=== PATIENT | female | born 1930 | race Caucasian/White ===

== ENCOUNTER 2016-08-04 14:52 | Emergency (ER) | payer MEDICARE, BC ==
[2016-08-04 14:59] VITALS: BP 166/71; PULSE 85; RESP 20; TEMP 96.9
[2016-08-04] MEDS ORDERED: DIPH,PERTUS(ACELL)TETVAC-LF 0.5 ML VIAL IM ONE (15:19)
--- NOTE | 2016-08-04 15:23 | ED ---
Wound/Laceration HPI - General Chief Complaint: Wound/Laceration Stated Complaint: left thumb lac Time Seen by Provider: 08/04/16 15:00 Source: patient Mode of arrival: ambulatory Limitations: no limitations - History of Present Illness Initial Comments: Patient is an 86-year-old right-handed female presenting to the emergency department with complaints of left thumb laceration. Onset of injury 22 hours ago. Patient states that she was cutting vegetables with the knife slipped. Patient immediately cleaned the wound with water and apply dressing. Patient states when she removed the dressing this morning, the wound flap came off and there was little bleeding. Patient currently denies pain. Patient states she took some Tylenol earlier in the day. Patient denies chills, nausea , vomiting, shortness of breath, chest pain, abdominal pain, numbness or tingling. Patient is unsure of last tetanus immunization. Place: home Patient Tetanus UTD: No Context: accidental, sharp object use Associated Symptoms: pain - Related Data Home Medications Medication Instructions Recorded Confirmed Aspirin 81 mg PO DAILY 10/23/13 10/30/15 Losartan Potassium [Cozaar] 100 mg PO DAILY 10/23/13 10/30/15 Previous Rx's Medication Instructions Recorded traMADol HCl [Ultram] 50 mg PO Q6H PRN #20 tab 10/30/15 valACYclovir HCL [Valtrex] 1,000 mg PO TID #21 tablet 10/30/15 Allergies Allergy/AdvReac Type Severity Reaction Status Date / Time morphine Allergy Nausea & Verified 08/04/16 14:59 Vomiting Penicillins Allergy Unknown Verified 08/04/16 14:59 Childhood Review of Systems ROS Statement: Those systems with pertinent positive or pertinent negative responses have been documented in the HPI. ROS Other: All systems not noted in ROS Statement are negative. Past Medical History Past Medical History: Hypertension, Osteoarthritis (OA) History of Any Multi-Drug Resistant Organisms: None Reported Past Surgical History: Appendectomy, Cholecystectomy, Heart Catheterization, Hysterectomy, Joint Replacement Additional Past Surgical History / Comment(s): bunion hammer toes neck Past Psychological History: No Psychological Hx Reported Smoking Status: Never smoker Past Alcohol Use History: None Reported Past Drug Use History: None Reported General Exam - General Exam Comments Initial Comments: GENERAL: Pt awake and alert, well-appearing, well-nourished, and in no acute distress. HEAD: Atraumatic, normocephalic. EYES: Pupils equal and round. Sclera anicteric, conjunctiva are normal. ENT: Moist mucous membranes. NECK:Normal range of motion. Supple without lymphadenopathy or JVD. No carotid bruits. Thyroid midline, small and firm without palpable masses. LUNGS: Breath sounds clear to auscultation bilaterally. No wheezes, rales, or rhonchi. HEART: Heart S1, S2, no S3 or S4. Regular rate and rhythm. No murmurs, rubs or gallops. NEUROLOGICAL: Pt oriented x 3. No focal deficits. Strength and sensation grossly intact. PSYCH: Normal mood, normal affect. SKIN: Warm, dry. Laceration to distal tip of left thumb without a nail injury, no active bleeding. Skin flap has attached itself. Left Forearm Wrist exam: Present: normal inspection, full ROM. Absent: tenderness, swelling Hand Wrist exam: Present: full ROM, tenderness (To distal left thumb), laceration (0.5 cm laceration to distal left thumb, no erythema or active drainage.) Neuro motor exam: Present: wrist extension intact, thumb opposition intact, thumb IP flexion intact, thumb adduction intact, fingers 2-5 abduction intact Neurosensory exam: Present: 2-point discrimination, radial nerve intact, ulnar nerve intact, median nerve intact Vascular: Present: normal capillary refill, radial pulse, brachial pulse, ulnar pulse. Absent: vascular compromise Course Vital Signs 08/04/16 14:57 Temperature 96.9 F L Pulse Rate 85 Respiratory 20 Rate Blood Pressure 166/71 O2 Sat by Pulse 96 Oximetry Medical Decision Making - Medical Decision Making 0.5 cm laceration to left distal thumb without nail damage. Wound flap has attached itself. Wound cleaned and bacitracin applied along with new dressing. Tetanus given. Patient instructed to follow-up with primary care physician as needed and return to the emergency department immediately with signs and symptoms of infection. Patient agrees with treatment plan. Return parameters discharge instructions reviewed. Disposition Clinical Impression: Laceration of left thumb with delay in treatment Disposition: HOME SELF-CARE Condition: Good Instructions: Laceration Without Closure (ED) Additional Instructions: Keep wound clean. May apply bacitracin twice daily to prevent infection. Please return to the emergency department with symptoms of infection such as redness or red streaks progressing up and extremity, increased pain, swelling, fever, or uncontrolled bleeding. Please follow-up with primary care physician as needed. Please return to the emergency department if symptoms do not improve or get worse. Referrals: Hetal Horton MD [Primary Care Provider] - 1-2 days Time of Disposition: 15:22
== END 2016-08-04 15:45 | disposition home or self-care (01) ==
LOC: EC 14:52
DX: S61.012A Laceration without foreign body of left thumb without damage to nail, initial encounter (principal); I10 Essential (primary) hypertension; M19.90 Unspecified osteoarthritis, unspecified site; Z79.82 Long term (current) use of aspirin; Z79.899 Other long term (current) drug therapy; Z88.0 Allergy status to penicillin; Z88.5 Allergy status to narcotic agent; Z23 Encounter for immunization; W26.0XXA Contact with knife, initial encounter; Y92.009 Unspecified place in unspecified non-institutional (private) residence as the place of occurrence of the external cause
CPT/HCPCS: 90471; 90715; 99282

== ENCOUNTER 2016-11-11 23:44 | Emergency (ER) | payer MEDICARE, BC ==
[2016-11-12] MEDS ORDERED: LIDOCAINE/EPINEPHR/TETRACAINE 5 ML BOTTLE TOPICAL ONE (00:35)
[2016-11-12] MEDS ORDERED: TOPICAL SKIN ADHESIVE 1 EACH AMP TOPICAL ONE (00:35)
--- NOTE | 2016-11-12 01:09 | CT ---
EXAM: CT Head Without Intravenous Contrast CLINICAL HISTORY: Pain TECHNIQUE: Axial computed tomography images of the head/brain without intravenous contrast. CTDI is 57.4 mGy and DLP is 892 mGy-cm. This CT exam was performed using one or more of the following dose reduction techniques: automated exposure control, adjustment of the mA and/or kV according to patient size, and/or use of iterative reconstruction technique. COMPARISON: No relevant prior studies available. FINDINGS: Brain: No evidence of acute infarct, hemorrhage, mass or edema. Chronic small vessel ischemic disease and senescent changes. Ventricles: Unremarkable. No ventriculomegaly. Bones/joints: Unremarkable. No acute fracture. Soft tissues: Unremarkable. Sinuses: Mild mucosal thickening of paranasal sinuses Mastoid air cells: Minimal opacification of the mastoid air cells. IMPRESSION: No acute findings.
--- NOTE | 2016-11-12 01:13 | ED ---
Head Injury HPI - General Chief complaint: Head Injury Stated complaint: Lac above rt eye Time Seen by Provider: 11/12/16 00:32 Source: patient, RN notes reviewed Mode of arrival: ambulatory Limitations: no limitations - History of Present Illness Initial comments: 86-year-old female presents emergency Department chief complaint head injury, facial laceration. She states that she was walking in the dark and caught the corner of a wall with her face. Patient states that she did not lose consciousness but she felt days. Patient states that her tetanus is up-to-date with tetanus last year. Patient denies any blurred vision, headache or dizziness. Denies any neck pain. She states she does take aspirin daily. She denies any other blood thinners and denies any Plavix. Patient denies nausea vomiting or any focal weakness. - Related Data Home Medications Medication Instructions Recorded Confirmed Aspirin 81 mg PO DAILY 10/23/13 10/30/15 Losartan Potassium [Cozaar] 100 mg PO DAILY 10/23/13 10/30/15 Previous Rx's Medication Instructions Recorded traMADol HCl [Ultram] 50 mg PO Q6H PRN #20 tab 10/30/15 valACYclovir HCL [Valtrex] 1,000 mg PO TID #21 tablet 10/30/15 Allergies/Adverse reactions: Allergies Allergy/AdvReac Type Severity Reaction Status Date / Time morphine Allergy Nausea & Verified 11/11/16 23:51 Vomiting Penicillins Allergy Unknown Verified 11/11/16 23:51 Childhood Review of Systems ROS Statement: Those systems with pertinent positive or pertinent negative responses have been documented in the HPI. ROS Other: All systems not noted in ROS Statement are negative. Past Medical History Past Medical History: Hypertension, Osteoarthritis (OA) History of Any Multi-Drug Resistant Organisms: None Reported Past Surgical History: Appendectomy, Cholecystectomy, Heart Catheterization, Hysterectomy, Joint Replacement Additional Past Surgical History / Comment(s): bunion hammer toes neck Past Psychological History: No Psychological Hx Reported Smoking Status: Never smoker Past Alcohol Use History: None Reported Past Drug Use History: None Reported General Exam Limitations: no limitations General appearance: alert, in no apparent distress Head exam: Present: atraumatic, normocephalic. Absent: normal inspection (0.5 cm vertical laceration above the right eyebrow) Eye exam: Present: normal appearance, PERRL, EOMI. Absent: scleral icterus, conjunctival injection, periorbital swelling ENT exam: Present: normal exam, normal oropharynx, mucous membranes moist, TM's normal bilaterally, normal external ear exam Neck exam: Present: normal inspection, full ROM. Absent: tenderness, meningismus, lymphadenopathy Respiratory exam: Present: normal lung sounds bilaterally. Absent: respiratory distress, wheezes, rales, rhonchi, stridor Cardiovascular Exam: Present: regular rate, normal rhythm, normal heart sounds. Absent: systolic murmur, diastolic murmur, rubs, gallop, clicks Neurological exam: Present: alert, oriented X3, CN II-XII intact, reflexes normal. Absent: motor sensory deficit Skin exam: Present: warm, dry, intact, normal color. Absent: rash Course Vital Signs 11/11/16 23:47 Temperature 98.6 F Pulse Rate 80 Respiratory 16 Rate Blood Pressure 161/70 O2 Sat by Pulse 96 Oximetry Procedures - Procedures Initial comment: facial laceration 0.5 cm was cleaned with saline and Dermabond was used to close the wound. Medical Decision Making - Medical Decision Making 86-year-old female presented emergency from for facial injury, head injury. Patient's laceration was closed using Dermabond. Patient's CT does not show any acute abnormality. Return parameters were discussed Disposition Clinical Impression: Facial laceration, Head injury Disposition: HOME SELF-CARE Condition: Stable Instructions: Skin Adhesive Care (ED), Head Injury (ED) Additional Instructions: Please return to the Emergency Department if symptoms worsen or any other concerns. Referrals: Hetal Horton MD [Primary Care Provider] - 1-2 days Time of Disposition: 01:13
[2016-11-12 01:29] VITALS: BP 165/75; PULSE 66; RESP 18; TEMP 97.5
== END 2016-11-12 01:29 | disposition home or self-care (01) ==
LOC: EC 23:44
DX: S01.81XA Laceration without foreign body of other part of head, initial encounter (principal); I10 Essential (primary) hypertension; M19.90 Unspecified osteoarthritis, unspecified site; Z79.82 Long term (current) use of aspirin; Z79.899 Other long term (current) drug therapy; Z88.0 Allergy status to penicillin; Z88.5 Allergy status to narcotic agent; W22.8XXA Striking against or struck by other objects, initial encounter; Y93.01 Activity, walking, marching and hiking
CPT/HCPCS: 12001; 70450; 99283

== ENCOUNTER → 2017-01-14 | Outpatient (CLI) | payer MEDICARE, BC ==
--- NOTE | 2017-01-14 09:59 | US ---
EXAMINATION TYPE: US thyroid st tissue head/neck DATE OF EXAM: 01/14/2017 COMPARISON: NONE CLINICAL HISTORY: E05.90 thyrotoxicosis. GLAND SIZE: Right Lobe: 4.3 x 1.4 x 1.0 cm Overall Parenchyma: homogenous Left Lobe: 3.2 x 0.6 x 0.7 cm Overall Parenchyma: homogeneous Isthmus Thickness: 0.2 cm NODULES RIGHT: # of nodules measured on right: 1 1. 0.5 X 0.3 x 0.4 cm anechoic cystic nodule at the lower pole with well-defined margins. This nod ule is wider than tall and shows no intranodular vascularity. LEFT: # of nodules measured on left: 0 ISTHMUS: # of nodules measured in the isthmus: 0 Bilateral neck scanned, no evidence of lymphadenopathy. IMPRESSION: 1. Nonenlarged, heterogenous thyroid gland without hyperemia to correspond to the patient's history o f thyrotoxicosis. 2. Single subcentimeter cystic right thyroid lobe lesion that may represent a benign colloid cyst.
--- NOTE | 2017-01-15 10:43 | NM ---
EXAMINATION TYPE: NM thyroid image w uptake DATE OF EXAM: 01/15/2017 COMPARISON: Ultrasound 01/14/2017 HISTORY: 86-year-old female with thyrotoxicosis. TECHNIQUE: After the intravenous administration of 11.0 mCi Tc 99m Sodium Pertechnetate, thyroid imag ing is performed 10 minutes post injection. Thyroid iodine uptake is calculated after the oral admini stration of 11.1 uCi I-131 capsule. FINDINGS: There is normal distribution of activity throughout the gland. The 4 hour iodine uptake is calculated at 6.7% (normal range 8-14%). The 24-hour iodine uptake is perlita culated at 20.4% (normal range 15-35%). IMPRESSION: 1. Measurements show normal to low iodine uptake. 2. Clinically correlate given the patient's thyrotoxicosis; some differential considerations include subacute and silent thyroiditis.
== END | disposition home or self-care (01) ==
LOC: RADUSMAIN 09:14
PROVIDERS: ATTEND Internal Medicine
DX: E05.10 Thyrotoxicosis with toxic single thyroid nodule without thyrotoxic crisis or storm (principal)
CPT/HCPCS: 76536; 78014; A9528; A9512

== ENCOUNTER 2017-09-24 14:23 | Emergency (ER) | payer MEDICARE, BC ==
[2017-09-24 14:30] VITALS: BP 206/93; PULSE 80; RESP 20; TEMP 98.1
--- NOTE | 2017-09-24 14:56 | XR ---
EXAMINATION TYPE: XR ankle complete LT, XR foot complete LT DATE OF EXAM: 09/24/2017 CLINICAL HISTORY: Fall injury one week ago with pain and swelling TECHNIQUE: Frontal, lateral and oblique images of the left ankle and foot are obtained. COMPARISON: None. FINDINGS: Osseous structures are demineralized. There is no acute fracture/dislocation evident in th e left ankle. The ankle mortise appears within normal limits. The overlying soft tissue appears unr emarkable. There is no acute fracture or dislocation evident in the left foot. There is evidence of bunion corre ction surgery distal first metatarsal with slight hallux valgus positioning and mild to moderate join t space loss and spurring first metatarsophalangeal joint redemonstrated. There is age indeterminate comminuted mildly displaced fracture distal diaphysis fifth metatarsal. Marked flexion in toes makes evaluation at this level suboptimal. Moderate size inferior calcaneal spur is present. Overlying soft tissue is unremarkable. IMPRESSION: There is age-indeterminate mildly displaced comminuted fracture distal diaphysis fifth m etatarsal, correlate with point level tenderness at this level advised.
--- NOTE | 2017-09-24 15:03 | ED ---
Lower Extremity Injury HPI - General Chief Complaint: Extremity Injury, Lower Stated Complaint: fall/foot swelling Time Seen by Provider: 09/24/17 14:50 Source: patient Mode of arrival: wheelchair Limitations: no limitations - History of Present Illness Initial Comments: This 87-year-old white female presents with a complaint of left foot injury. She states that she tripped while at [employer] one week ago. She apparently twisted her foot and/or ankle. She complains of some swelling to the area. She only has some mild pain. She has been able to ambulate without any difficulty. She denies any other injuries. She states that the swelling has been persistent so she came in for further evaluation. Other complaints or modifying factors. - Related Data Home Medications Medication Instructions Recorded Confirmed Aspirin 81 mg PO DAILY 10/23/13 10/30/15 Losartan Potassium [Cozaar] 100 mg PO DAILY 10/23/13 10/30/15 Previous Rx's Medication Instructions Recorded traMADol HCl [Ultram] 50 mg PO Q6H PRN #20 tab 10/30/15 valACYclovir HCL [Valtrex] 1,000 mg PO TID #21 tablet 10/30/15 Allergies Allergy/AdvReac Type Severity Reaction Status Date / Time morphine Allergy Nausea & Verified 09/24/17 14:59 Vomiting Penicillins Allergy Unknown Verified 09/24/17 14:59 Childhood Sulfa (Sulfonamide Allergy Unknown Verified 09/24/17 14:59 Antibiotics) Childhood Review of Systems ROS Statement: Those systems with pertinent positive or pertinent negative responses have been documented in the HPI. ROS Other: All systems not noted in ROS Statement are negative. Past Medical History Past Medical History: Coronary Artery Disease (CAD), Hypertension, Osteoarthritis (OA) History of Any Multi-Drug Resistant Organisms: None Reported Past Surgical History: Appendectomy, Cholecystectomy, Heart Catheterization, Hysterectomy, Joint Replacement Additional Past Surgical History / Comment(s): bunion hammer toes neck Past Psychological History: No Psychological Hx Reported Smoking Status: Never smoker Past Alcohol Use History: None Reported Past Drug Use History: None Reported General Exam Limitations: no limitations General appearance: alert, in no apparent distress Extremities exam: Present: tenderness (There is tenderness noted to the left fifth metatarsal. There is no significant tenderness to the ankle joint. There is some mild swelling around the left fifth metatarsal distally. There is no gross deformity over currently identified. There is excellent range of motion of the foot and ankle. Good pedal pulses are noted.) Neurological exam: Present: alert, oriented X3 Skin exam: Present: intact. Absent: rash Course Vital Signs 09/24/17 14:27 Temperature 98.1 F Pulse Rate 80 Respiratory 20 Rate Blood Pressure 206/93 O2 Sat by Pulse 98 Oximetry Medical Decision Making - Medical Decision Making The patient was seen and examined. The x-rays of the foot and ankle are reviewed. It is noted that she has a distal left fifth metatarsal fracture which is angulated and comminuted. No other fractures or acute osseous abnormalities are noted of the foot and ankle. She is placed in a Lucio shoe. She is counseled regarding her diagnosis in detail and leaves in no significant distress. She is requesting follow-up with Dr. Jerry Mcallister as her has seen him in the past. It is felt that she would benefit from further orthopedic evaluation for definitive treatment of this week long injury. Disposition Clinical Impression: Fracture of metatarsal of left foot, closed Disposition: HOME SELF-CARE Condition: Good Instructions: Foot Fracture in Adults (ED) Is patient prescribed a controlled substance at d/c from ED?: No Referrals: Jerry Duran DO [Doctor of Osteopathic Medicine] - As Soon As Possible Hetal Horton MD [Primary Care Provider] - 09/27/17 Time of Disposition: 15:03
== END 2017-09-24 15:28 | disposition home or self-care (01) ==
LOC: EC 14:23
DX: S92.352A Displaced fracture of fifth metatarsal bone, left foot, initial encounter for closed fracture (principal); I25.10 Atherosclerotic heart disease of native coronary artery without angina pectoris; I10 Essential (primary) hypertension; Z95.5 Presence of coronary angioplasty implant and graft; Z88.0 Allergy status to penicillin; Z88.2 Allergy status to sulfonamides; Z88.5 Allergy status to narcotic agent; Z79.82 Long term (current) use of aspirin; Z79.899 Other long term (current) drug therapy; W01.0XXA Fall on same level from slipping, tripping and stumbling without subsequent striking against object, initial encounter; Y92.512 Supermarket, store or market as the place of occurrence of the external cause
CPT/HCPCS: 99283

== ENCOUNTER → 2017-09-25 | Outpatient (CLI) | payer MEDICARE, BC | END | disposition home or self-care (01) | LOC: LABWHC1 12:17 | PROVIDERS: ATTEND Orthopaedic Surgery | DX: E55.9 Vitamin D deficiency, unspecified (principal) | CPT/HCPCS: 36415; 82306 ==

== ENCOUNTER → 2018-02-04 | Outpatient (CLI) | payer MEDICARE, BC ==
--- NOTE | 2018-02-04 13:47 | US ---
EXAMINATION TYPE: US venous doppler duplex LE BI DATE OF EXAM: 02/04/2018 1:18 PM COMPARISON: NONE CLINICAL HISTORY: M79.672 Pain in left foot, M79.661 Pain in rt leg. SIDE PERFORMED: Bilateral TECHNIQUE: The lower extremity deep venous system is examined utilizing real time linear array sonog akosua with graded compression, doppler sonography and color-flow sonography. VESSELS IMAGED: Common Femoral Vein Deep Femoral Vein Greater Saphenous Vein * Femoral Vein Popliteal Vein Small Saphenous Vein * Proximal Calf Veins (* superficial vessels) Right Leg: Negative for DVT. Thickened wall valves noted on image 20 at mid Popliteal Vein. Left Leg: Negative for DVT Negative for SVT bilateral Greater Saphenous Vein as assessed per order. IMPRESSION: 1. Ultrasound bilateral lower extremity negative for deep venous thrombosis. 2. Note is made of thickened valve is within the right lower extremity venous system. 3. Superficial venous thrombosis is not evident within the bilateral greater saphenous veins.
== END | disposition home or self-care (01) ==
LOC: RADUSWWP 12:40
PROVIDERS: ATTEND Orthopaedic Surgery
DX: I87.8 Other specified disorders of veins (principal); S92.355D Nondisplaced fracture of fifth metatarsal bone, left foot, subsequent encounter for fracture with routine healing; M79.661 Pain in right lower leg; M79.662 Pain in left lower leg; I80.9 Phlebitis and thrombophlebitis of unspecified site
CPT/HCPCS: 93970

== ENCOUNTER → 2018-07-08 | Outpatient (CLI) | payer MEDICARE, BC ==
[2018-07-08 12:34] LABS: HCT 39.9 % (34.0-46.0); HGB 12.4 gm/dL (11.4-16.0); MCHC 31.1 g/dL (31.0-37.0); MCV 96.5 fL (80.0-100.0); Mean Platelet Volume 8.2; Platelet Count 106 k/uL (150-450); RBC 4.13 m/uL (3.80-5.40); RDW 13.5 % (11.5-15.5)
== END | disposition home or self-care (01) ==
LOC: LABPAT 10:58
PROVIDERS: ATTEND Internal Medicine Interventional Cardiology
DX: Z01.812 Encounter for preprocedural laboratory examination (principal); I10 Essential (primary) hypertension; E78.2 Mixed hyperlipidemia; R94.39 Abnormal result of other cardiovascular function study
CPT/HCPCS: 36415; 80051; 82565; 84520; 85027

== ENCOUNTER → 2018-07-22 | Day surgery (SDC) | payer MEDICARE, BC ==
[2018-07-18 10:41] VITALS: BMI 31.1
[~2018-07-22] MED LIST: ALPRAZolam 0.25 MG TAB PO PRN; ALPRAZolam 0.5 MG TAB PO PRN; ASPIRIN 325 MG TAB PO ONE; ASPIRIN 81 MG PO SCH; ATORVASTATIN 80 MG TAB PO ONE; CHOLECALCIFEROL 1,000 UNIT TAB PO SCH; CYANOCOBALAMIN 2500 MCG PO SCH; HEPARIN SODIUM 1,000 UN/ML (10ML VL) IV ONE; HEPARIN SODIUM 1,000 UN/ML (10ML VL) ONE; IOPAMIDOL-370 125ML BTL INJ ONE; LIDOCAINE 2% INJ 20 MG/ML SQ ONE; MIDAZOLAM 2 MG/2 ML VIAL IVP ONE; MULTIVITAMINS, THERA 1 EACH TAB PO SCH; NITROGLYCERIN SL TABS 0.4 MG TAB SUBLINGUAL PRN; NON-FORMULARY DRUG (Biotin [Biotin] 10,000 MCG) PO SCH; NON-FORMULARY DRUG (Krill Oil [Krill Oil] 500 MG) PO SCH; NON-FORMULARY DRUG (Losartan Potassium [Cozaar] 100 MG) PO SCH; NON-FORMULARY DRUG (Magnesium Oxide 250 MG) PO SCH; NON-FORMULARY DRUG (Potassium [Potassium] 99 MG) PO SCH; RX INFO: IV CONTRAST WAS GIVEN 1 EACH MISC MISCELLANE PRN; SODIUM CHLORIDE 0.9% 1,000 ML IV SCH; SODIUM CHLORIDE 0.9% 1,000 ML in EMPTY BAG 1 BAG IV ONE; VERAPAMIL 2.5 MG/ML 2 ML AMP ONE; VERAPAMIL SYRINGE (5 MG/10 ML) IVP ONE; fentaNYL (PF) 50 MCG/ML 2 ML AMP IVP ONE; fentaNYL (PF) 50 MCG/ML 2 ML AMP ONE; hydrALAZINE HCL 25 MG TAB PO SCH
[2018-07-22 07:00] VITALS: RESP 18; TEMP 98
--- NOTE | 2018-07-22 08:15 | CC ---
CARDIAC CATHETERIZATION REPORT Mrs Salas is an 88-year-old female with known history of hypertension, who presented with symptoms of progressive fatigue and dyspnea, underwent a myocardial perfusion imaging that revealed a moderately-sized anterior wall inducible ischemia. In view of that, recommendation made regarding cardiac catheterization. The procedures, risks and complications were discussed with the patient who is in full understanding and agreement. PROCEDURE: Patient was brought to the garage laborer in a fasting semi-sedated state after receiving fentanyl and Benadryl and achieving moderate conscious sedated state. Using Xylocaine anesthesia and Seldinger technique, a 6-Cypriot sheath was introduced in the right radial artery. Selective right and left coronary angiography were performed using 5- Cypriot 3.5 bend right and left Marichuy catheter, multiple views of the coronary artery including hemiaxial views were obtained. Following that, a 5-Cypriot tight pigtail catheter was introduced in the left ventricle and pressures were calculated. Following that, the catheter and sheath were removed. Hemostasis was obtained with deployment of a TR band. There was no immediate complication. Patient is returned to her room in stable condition. Of note, patient received intra-arterial verapamil as well as 4000 units of intravenous heparin. FINDINGS: LEFT MAIN: This is a short size vessel, bifurcating into left circumflex, left anterior descending artery. Left main coronary artery has no evidence of high-grade stenosis. LEFT ANTERIOR DESCENDING ARTERY: This is a large-sized vessel, reaching toward the apex with a wraparound apex segment that tapers down to the distal third, giving rise to 3 small diagonal branch. The left anterior descending artery as well as branches have no evidence of high-grade stenosis. LEFT CIRCUMFLEX: This is a nondominant vessel, giving rise to 4 obtuse marginal branches, the left circumflex as well as branches have no evidence of significant obstructive coronary artery disease. RIGHT CORONARY ARTERY: This is a dominant vessel bifurcating distally into PDA and posterolateral segment and branches. The right coronary artery as well as branches have no evidence of significant obstructive coronary artery disease. LEFT VENTRICULOGRAM: Left ventriculogram was not performed. HEMODYNAMICS: There was no gradient across the aortic valve. The left ventricular end-diastolic pressure was 14 to 18 mmHg. CONCLUSION: Normal coronary arteries. RECOMMENDATION: In view of finding anatomy, recommend continue medical therapy with aggressive coronary risk modifications being initiated. Those findings and recommendation were discussed with the patient her family and they are in full understanding and agreement. Duration of the procedure is 16 minutes. MMODL / IJN: [id number] /
--- NOTE | 2018-07-22 08:22 | LTR ---
DATE OF SERVICE: 07/22/2018 RE: MaritzaSandyen Dear Dr. Horton; I had the pleasure to perform cardiac catheterization on Mrs. Salas at [facility] on July 22, 2018 and a full copy of the procedure note will be forwarded to you. In brief, she was found to have no evidence of obstructive coronary artery disease and based on those findings, I recommend continue medical therapy with aggressive risk modifications being initiated and thank you again for allowing me to participate in this patient's care. Please feel free to call for any questions. Sincerely yours, Sukhi Hargrove MD MMMIGUELL / ROSALIEN: [id number] /
[2018-07-22 12:01] VITALS: BP 106/54
[2018-07-22 13:13] VITALS: PULSE 75
== END | disposition home or self-care (01) ==
LOC: CATHCVL 05:56
PROVIDERS: ATTEND Internal Medicine Interventional Cardiology
DX: R06.09 Other forms of dyspnea (principal); R53.83 Other fatigue; R94.39 Abnormal result of other cardiovascular function study; I10 Essential (primary) hypertension; Z82.49 Family history of ischemic heart disease and other diseases of the circulatory system; I44.7 Left bundle-branch block, unspecified; Z79.82 Long term (current) use of aspirin; Z79.899 Other long term (current) drug therapy; Z88.5 Allergy status to narcotic agent; Z88.0 Allergy status to penicillin; Z88.2 Allergy status to sulfonamides
CPT/HCPCS: 93458; C1894; C1769; J2001; J2250; J3010; J1644; Q9967

== ENCOUNTER → 2018-09-22 | Outpatient (CLI) | payer MEDICARE, BC ==
[2018-09-22 10:31] LABS: Basophils % (A) 1 %; Eosinophils # (A) 0.1 k/uL (0-0.7); Eosinophils % (A) 3 %; HCT 36.2 % (34.0-46.0); HGB 11.8 gm/dL (11.4-16.0); Lymphocytes % (A) 25 %; MCH 30.9 pg (25.0-35.0); MCHC 32.5 g/dL (31.0-37.0); MCV 95.2 fL (80.0-100.0); Mean Platelet Volume 7.9; Monocytes # (A) 0.4 k/uL (0-1.0); Monocytes % (A) 9 %; Neutrophils # (A) 2.4 k/uL (1.3-7.7); Neutrophils % (A) 60 %; Platelet Count 196 k/uL (150-450); RBC 3.81 m/uL (3.80-5.40); RDW 13.5 % (11.5-15.5)
== END | disposition home or self-care (01) ==
LOC: LABWHC1 09:10
PROVIDERS: ATTEND Internal Medicine
DX: E78.2 Mixed hyperlipidemia (principal)
CPT/HCPCS: 36415; 85025

== ENCOUNTER → 2019-03-31 | Outpatient (CLI) | payer MEDICARE, BC | END | disposition home or self-care (01) | LOC: LABWHC1 08:58 | PROVIDERS: ATTEND Otolaryngology | DX: J38.01 Paralysis of vocal cords and larynx, unilateral (principal) | CPT/HCPCS: 36415; 82607; 84443; 86780 ==

== ENCOUNTER → 2019-04-13 | Outpatient (CLI) | payer MEDICARE, BC ==
--- NOTE | 2019-04-13 09:38 | CT ---
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 Lack of contrast limits evaluation. AIRWAY: The supraglottic, glottic, and subglottic portions of the airway appear patent and free of mass. SALIVARY GLANDS: The submandibular and parotid glands are free of mass or inflammatory process. THYROID GLAND: No nodules or masses seen. LYMPH NODES: No adenopathy seen greater than 1cm. OTHER: Vascular structures are patent. Generative changes throughout the cervical spine. Postoperati ve changes of cervical fusion. No abscess seen. IMPRESSION: No distinct abnormality to account for the patient's symptoms. EXAMINATION TYPE: CT neck chest without con DATE OF EXAM: 04/13/2019 COMPARISON: 11/09/2010 HISTORY: J38.[address] of the chest was performed with lung and mediastinal window settings submitted. The la ck of contrast limits evaluation of the vascular, mediastinal and parenchymal structures including th e upper abdomen. LUNGS: Near scarring noted left upper lobe. Calcification unchanged from prior study. Right lower lob e calcification. The lungs are clear and free of infiltrate. No atelectasis. No pulmonary nodule or mass is detected. No pleural effusion. No CT evidence of interstitial lung disease. MEDIASTINUM/BANG: Calcified hilar mediastinal lymph nodes. Thoracic aorta is of normal caliber with limited evaluation given lack of contrast. The heart is not enlarged. No evidence for mediastinal m ass. No lymph nodes greater than 1cm. UPPER ABDOMEN: No significant abnormality is seen. OTHER: No significant other abnormality. IMPRESSION: 1. Stable parenchymal scarring and remote granulomatous change.
== END | disposition home or self-care (01) ==
LOC: RADCTMAIN 07:51
PROVIDERS: ATTEND Otolaryngology
DX: J98.4 Other disorders of lung (principal); Z88.0 Allergy status to penicillin; Z88.5 Allergy status to narcotic agent; Z88.2 Allergy status to sulfonamides
CPT/HCPCS: 36415; 70490; 71250; 82565; 82607; 84443; 84520; 86780

== ENCOUNTER → 2019-04-20 | Outpatient (CLI) | payer MEDICARE, BC | END | disposition home or self-care (01) | LOC: LABWHC1 09:44 | PROVIDERS: ATTEND Otolaryngology | DX: R53.83 Other fatigue (principal) | CPT/HCPCS: 36415; 84439; 86376 ==

== ENCOUNTER → 2019-05-21 | Outpatient (CLI) | payer MEDICARE, BC ==
--- NOTE | 2019-05-21 14:08 | XR ---
EXAMINATION TYPE: XR lumbar spine 2 or 3V DATE OF EXAM: 05/21/2019 CLINICAL HISTORY: Lumbar spondylosis border. Back pain into left leg history of numerous falls per pa tient TECHNIQUE: Frontal and lateral images of the lumbar spine are obtained. COMPARISON: Prior lumbar spine x-ray August 13, 2013 FINDINGS: There are 5 lumbar type vertebral bodies redemonstrated giving a function of somewhat hypo plastic left T12 rib. There is redemonstration of dextroconvex scoliotic curvature centered L5 level. Osseous structures are demineralized which is noted to lower radiographic sensitivity. There is now moderate compression fracture L1 level presumed chronic as there is diffuse sclerosis present there a ppears to be grade 1 retrolisthesis of L1 on L2 and L2 on L3. There is mild to moderate disc space na rrowing with mild anterior spurring L2-L3 level. There is mild disc space narrowing L5-S1 level. Face t arthropathy lower lumbar spine. Overlying Vascular calcification. IMPRESSION: As above.
== END | disposition home or self-care (01) ==
LOC: RADXRMAIN 13:32
PROVIDERS: ATTEND Internal Medicine
DX: M48.56XA Collapsed vertebra, not elsewhere classified, lumbar region, initial encounter for fracture (principal); M99.73 Connective tissue and disc stenosis of intervertebral foramina of lumbar region; M99.74 Connective tissue and disc stenosis of intervertebral foramina of sacral region; M46.96 Unspecified inflammatory spondylopathy, lumbar region; M41.86 Other forms of scoliosis, lumbar region
CPT/HCPCS: 72100

== ENCOUNTER → 2019-05-29 | Outpatient (CLI) | payer MEDICARE, BC ==
--- NOTE | 2019-05-29 11:53 | US ---
EXAMINATION TYPE: US abdomen complete DATE OF EXAM: 05/29/2019 COMPARISON: CT 2010. CLINICAL HISTORY: D69.6 Thrombocytopenia, unspecified. Abnormal labs EXAM MEASUREMENTS: Liver Length: 14.1 cm CBD: 1.1 cm Spleen: 8.3 cm Right Kidney: 10.5 x 4.7 x 5.5 cm Left Kidney: 9.1 x 3.8 x 3.5 cm Pancreas: Difficult to visualize due to overlying bowel gas Liver: Limited visualization/ appeared wnl Gallbladder: Surgically absent Evidence for sonographic Hernandez's sign: No CBD: ?wnl for pt's age and post andrés Spleen: A few granulomas, otherwise appeared wnl Right Kidney: Multiple cysts, largest cyst mid= 3.1 x 3.2 x 4.7 cm, lower pole gassed out Left Kidney: Cyst mid= 3.1 x 2.0 x 2.6 cm/ difficult to visualize due to overlying bowel gas Upper IVC: wnl Abd Aorta: wnl The visualized liver is slightly heterogeneous. The intrahepatic portion of the IVC and visualized a bdominal aorta are within normal limits. Gallbladder noted surgically absent. Common bile duct is mi nimally dilated without intrahepatic ductal dilatation. The visualized portions of the pancreas are slightly heterogeneous. Significant portions obscured by overlying bowel gas on images dated per primo hnologist. The spleen is unremarkable. Kidneys are symmetric and free of hydronephrosis. A few simpl e appearing thin-walled cysts scattered throughout both kidneys are present. Increased cortical echog enicity bilaterally is seen. Findings are consistent with product of chronic medical renal disease. IMPRESSION: Spleen is nonenlarged. No acute findings are evident.
== END | disposition home or self-care (01) ==
LOC: RADUSWWP 10:32
PROVIDERS: ATTEND Internal Medicine
DX: D69.6 Thrombocytopenia, unspecified (principal)
CPT/HCPCS: 76700

== ENCOUNTER → 2019-05-30 | Outpatient (CLI) | payer MEDICARE, BC ==
--- NOTE | 2019-05-30 17:10 | MR ---
EXAMINATION TYPE: MR lumbar spine wo con DATE OF EXAM: 05/30/2019 COMPARISON: None HISTORY: Other spondylosis, lumbosacral region Multiplanar multiecho imaging of the lumbar spine was performed without contrast. Vertebra have normal alignment. There is 50% anterior wedging of L1 vertebra. There is 10% depression superior endplate of L5 vertebra. Bone edema seen on the T2 images. There is no There is disc space narrowing throughout the lumbar spine. There is developmentally adequate canal and no significant sp inal stenosis. Sacroiliac joints are intact. There is no lumbar paraspinal mass. I see no focal bone destruction. There are numerous bilateral renal cortical cysts. There are small posterior disc bulges from T12 to L4. IMPRESSION: Multilevel spondylotic changes. Old osteoporotic type compression fractures at L1 and L2. No acute fr acture seen. No spinal stenosis. Mild multilevel posterior disc bulging without spinal stenosis.
== END | disposition home or self-care (01) ==
LOC: RADMRIMAIN 14:17
PROVIDERS: ATTEND Internal Medicine
DX: M47.816 Spondylosis without myelopathy or radiculopathy, lumbar region (principal); M51.26 Other intervertebral disc displacement, lumbar region; M80.08XD Age-related osteoporosis with current pathological fracture, vertebra(e), subsequent encounter for fracture with routine healing
CPT/HCPCS: 72148

== ENCOUNTER 2019-06-15 10:32 | Inpatient (IN) | payer MEDICARE, BC ==
[2019-06-15] MEDS ORDERED: SODIUM CHLORIDE 0.9% 500 ML 500 ML IV STA (10:58)
[2019-06-15 11:43] LABS: Basophils # (A) 0.1 k/uL (0-0.2); Basophils % (A) 2 %; Eosinophils # (A) 0.1 k/uL (0-0.7); Eosinophils % (A) 1 %; HCT 39.6 % (34.0-46.0); HGB 12.8 gm/dL (11.4-16.0); Lymphocytes # (A) 0.7 k/uL (1.0-4.8); Lymphocytes % (A) 9 %; MCH 30.3 pg (25.0-35.0); MCHC 32.3 g/dL (31.0-37.0); Monocytes # (A) 0.4 k/uL (0-1.0); Monocytes % (A) 6 %; Neutrophils # (A) 5.9 k/uL (1.3-7.7); Neutrophils % (A) 81 %; Platelet Count 207 k/uL (150-450); RBC 4.22 m/uL (3.80-5.40); RDW 12.7 % (11.5-15.5); WBC 7.2 k/uL (3.8-10.6)
[2019-06-15 11:49] LABS: Albumin 3.9 g/dL (3.5-5.0); Calcium 9.7 mg/dL (8.4-10.2); Potassium 4.2 mmol/L (3.5-5.1); Total Bilirubin 1.2 mg/dL (0.2-1.3); Total Protein 7.9 g/dL (6.3-8.2)
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
--- NOTE | 2019-06-15 12:34 | CT ---
EXAMINATION TYPE: CT abdomen pelvis wo con DATE OF EXAM: 06/15/2019 HISTORY: LLQ pain and back pain CT DLP: 703.4 mGycm. Automated Exposure Control for Dose Reduction was Utilized. TECHNIQUE: CT scan of the abdomen and pelvis is performed without oral or IV contrast. COMPARISON: CT November 09, 2010. MRI lumbar spine May 30, 2019. Abdominal ultrasound May 29 FINDINGS: Within the limitations of a non-contrast study, the following observations are made. LUNG BASES: Patchy bibasilar linear scarring and/or atelectasis. LIVER/GB: Gallbladder not visualized consistent with cholecystectomy similar to prior CT. PANCREAS: Early moderate generalized fat replaced atrophy more prominent from 2011 study. SPLEEN: No significant abnormality is seen. ADRENALS: No significant abnormality is seen. KIDNEYS: Scattered thin-walled cysts of varying size and shape throughout both kidneys is redemonstra marita more numerous and larger from 2011 CT. Some are slightly more hyperdense suggesting proteinaceous cysts. Some cortical thinning bilaterally is present. BOWEL: Moderate to large size hiatal hernia increased in size from prior. Poor distention of stomach within hernia with prominence of gastric folds is nonspecific due to poor distention. Suboptimal eval uation due to lack of enteric contrast. No suspicious small or large bowel dilatation. Prominent dive rticula throughout the colon. In addition there is poor distention with moderate wall thickening prox imal to mid sigmoid colon with mild to moderate ill-defined fluid and fat stranding centered left ant erior upper to mid pelvis. CT findings are consistent with uncomplicated acute diverticulitis. No wel l-formed fluid collection or abscess is seen. No pneumoperitoneum is present. GENITAL ORGANS: Uterus is surgically absent. LYMPH NODES: No greater than 1cm abdominal or pelvic lymph nodes are appreciated. OSSEOUS STRUCTURES: Demineralization is present. Moderate compression fracture L1 level redemonstrate d with sclerosis on CT. Facet arthropathy lower lumbar spine. OTHER: Mild/moderate calcified plaque of the aorta extends into branch vessels. IMPRESSION: CT findings consistent with a mild to moderate uncomplicated acute diverticulitis proxima l to mid sigmoid colon level centered at level of left upper to mid pelvis.
[2019-06-15] MEDS ORDERED: LEVOFLOXACIN 750MG-D5W PMX 750 MG in DEXTROSE/WATER 1 150ML.BAG IVPB STA (13:21)
--- NOTE | 2019-06-15 15:34 | P.HPIM ---
History of Present Illness H&P Date: 06/15/19 Chief Complaint: Left lower quadrant abdominal pain Is a pleasant 89-year-old lady patient of Dr. waters . History of hypertension, admitted to the hospital secondary to left local left lower quadrant abdominal pain for the past 4 days prior to admission. Patient has no fever no chills, has been chronically constipated, no melena no magician, no fever no chills, occasional constipation, and was seen in the emergency room secondary to abdominal pain and was found to have acute diverticulitis. Patient's last colonoscopy was over 20 years ago, and only had one done in her entire life. Patient had history of PERRY/BSO cholecystectomy appendectomy. no new medications placed by PCP, prior to admission. Emergency room , CAT scan of the abdomen and pelvis were done for evaluation of the abdominal pain, and was found to have moderate to large hiatal hernia, increasing in size, per distention stomach within hernia, prominence of gastric fold, nonspecific distention, moderate wall thickening proximal to mid section colon, with mild to moderate ill-defined fluid and fat stranding centered in the left anterior upper to mid pelvis. CT scan findings are consistent with acute diverticulitis without perforation. Review of Systems Constitutional: Reports as per HPI, Reports anorexia, Denies chills, Denies chronic headaches, Denies chronic pain, Denies daytime sleepiness, Denies fatigue, Denies fever, Denies lethargy, Denies malaise, Denies night sweats, Denies poor appetite, Denies sweats, Denies weakness, Denies weight gain, Denies weight loss Ears, nose, mouth and throat: Reports as per HPI, Denies ant. neck pain, Denies bleeding gums, Denies dental pain, Denies dysphagia, Denies epistaxis, Denies headache, Denies hoarseness, Denies mouth pain, Denies nasal congestion, Denies nasal discharge, Denies neck fullness/pressure, Denies neck lump, Denies nose pain, Denies odynophagia, Denies post-nasal drip, Denies sinus pain, Denies sinus pressure, Denies swelling in mouth, Denies swelling in throat, Denies sore throat, Denies vertigo, Denies voice changes Cardiovascular: Reports as per HPI Respiratory: Reports as per HPI Gastrointestinal: Reports as per HPI, Reports abdominal pain, Reports nausea Genitourinary: Reports as per HPI Menstruation: Reports as per HPI, Reports post hysterectomy, Reports postmenopausal Musculoskeletal: Reports as per HPI, Denies arm numbness/tingling, Denies atrophy, Denies fractures, Denies frequent falls, Denies gait dysfunction, Denies hot joints, Denies leg numbness/tingling, Denies limitation of motion, Denies loss of height, Denies low back pain, Denies morning stiffness, Denies muscle cramps, Denies muscle weakness, Denies myalgias, Denies neck pain, Denies neck stiffness, Denies prior amputations, Denies redness of joints, Denies shooting arm pain, Denies shooting leg pain Integumentary: Reports as per HPI Neurological: Reports as per HPI Psychiatric: Reports as per HPI, Denies anhedonia, Denies anxiety, Denies a nxiety attacks, Denies change in appetite, Denies change in libido, Denies change in sleep habits, Denies confusion, Denies depression, Denies difficulty concentrating, Denies disorientation, Denies hallucinations, Denies hopelessness, Denies hypersomnia, Denies insomnia, Denies irritability, Denies memory loss, Denies mood swings, Denies paranoia, Denies sadness/tearfulness, Denies sleep disturbances, Denies suicidal ideation Endocrine: Reports as per HPI, Denies cold intolerance, Denies deepening of the voice, Denies excessive sweating, Denies excessive thirst, Denies fatigue, Denies flushing, Denies heat intolerance, Denies high blood sugars, Denies increase in ring/shoe/hat size, Denies low blood sugars, Denies nocturia, Denies palpitations, Denies polydipsia, Denies polyphagia, Denies polyuria, Denies proptosis, Denies recent glucocorticoid use, Denies thyroid mass, Denies weight change Hematologic/Lymphatic: Reports as per HPI Allergic/Immunologic: Reports as per HPI Past Medical History Past Medical History: GERD/Reflux, Hypertension, Osteoarthritis (OA) Additional Past Medical History / Comment(s): lyme disease History of Any Multi-Drug Resistant Organisms: None Reported Past Surgical History: Appendectomy, Breast Surgery, Cholecystectomy, Heart Catheterization, Hysterectomy, Joint Replacement, Orthopedic Surgery Additional Past Surgical History / Comment(s): Cervical fracture with surgery, 07/22/18 cardiac cath-normal, colonoscopy with benign polypectomy, bilateral total knee arthroplasty, bilateral cataract removals/lens implants, bilateral feet hammer toe/bunion surgeries, R breast benign biopsy. Past Anesthesia/Blood Transfusion Reactions: No Reported Reaction Smoking Status: Never smoker - Past Family History Father Additional Family Medical History / Comment(s): Heart problems. Mother Family Medical History: Cancer Additional Family Medical History / Comment(s): "Female cancer" Medications and Allergies Home Medications Medication Instructions Recorded Confirmed Type Aspirin 81 mg PO BID 10/23/13 06/15/19 History Losartan Potassium [Cozaar] 100 mg PO DAILY 10/23/13 06/15/19 History Biotin 10,000 mcg PO DAILY 09/24/17 06/15/19 History Cholecalciferol [Vitamin D3] 1,000 unit PO DAILY 09/24/17 06/15/19 History Cyanocobalamin (Vitamin B-12) 2,500 mcg PO DAILY 09/24/17 06/15/19 History [Vitamin B12] Krill Oil 1,000 mg PO DAILY 09/24/17 06/15/19 History Magnesium Oxide [Mag-Ox] 250 mg PO DAILY 09/24/17 06/15/19 History Multivitamins, Thera [Multivitamin 1 tab PO DAILY 09/24/17 06/15/19 History (formulary)] hydrALAZINE HCL [Apresoline] 50 mg PO BID 09/24/17 06/15/19 History Potassium 99 mg PO DAILY 07/18/18 06/15/19 History Calcium Carbonate [Calcium] 600 mg PO HS 06/15/19 06/15/19 History Allergies Allergy/AdvReac Type Severity Reaction Status Date / Time morphine Allergy Nausea & Verified 06/15/19 12:49 Vomiting Penicillins Allergy Unknown Verified 06/15/19 12:49 Childhood Sulfa (Sulfonamide Allergy Unknown Verified 06/15/19 12:49 Antibiotics) Childhood Physical Exam Vitals: Vital Signs Temp Pulse Resp BP Pulse Ox 06/15/19 14:00 68 20 141/65 99 06/15/19 12:15 82 20 140/65 99 06/15/19 12:00 85 20 160/72 06/15/19 11:46 92 20 167/78 06/15/19 10:46 20 06/15/19 10:41 98.3 F 90 18 164/76 96 Intake and Output 06/15/19 06/15/19 06/15/19 06:59 14:59 22:59 Other: Weight 77.111 kg 77.111 kg - Constitutional General appearance: cooperative, no acute distress - EENT Eyes: abnormal pupil, edentulous, PERRLA, normal appearance ENT: hard of hearing, NA/AT, normal oropharynx - Neck Neck: normal ROM - Respiratory Respiratory: bilateral: CTA, negative: diminished, dullness, rales, rhonchi - Cardiovascular Rhythm: regular Abnormal Heart Sounds: no systolic murmur, no diastolic murmur, no rub, no S3 Gallop, no S4 Gallop, no click, no other - Gastrointestinal General gastrointestinal: soft Localized gastrointestinal: tender: LLQ - Integumentary Integumentary: normal, normal turgor - Neurologic Neurologic: CNII-XII intact - Musculoskeletal Musculoskeletal: gait normal, strength equal bilaterally - Psychiatric Psychiatric: A&O x's 3, appropriate affect, intact judgment & insight Results CBC & Chem 7: 06/15/19 11:20 06/15/19 11:20 Labs: Abnormal Lab Results - Last 24 Hours (Table) 06/15/19 06/15/19 Range/Units 11: 11:20 Lymphocytes # 0.7 L (1.0-4.8) k/uL BUN 21 H (7-17) mg/dL Creatinine 1.44 H (0.52-1.04) mg/dL Glucose 116 H (74-99) mg/dL Lipase 21 L (23-300) U/L Laboratory Results WBC 7.2 k/uL (3.8-10.6) 06/15/19 11:20 RBC 4.22 m/uL (3.80-5.40) 06/15/19 11:20 Hgb 12.8 gm/dL (11.4-16.0) 06/15/19 11:20 Hct 39.6 % (34.0-46.0) 06/15/19 11:20 MCV 94.0 fL (80.0-100.0) 06/15/19 11:20 MCH 30.3 pg (25.0-35.0) 06/15/19 11: MCHC 32.3 g/dL (31.0-37.0) 06/15/19 11:20 RDW 12.7 % (11.5-15.5) 06/15/19 11:20 Plt Count 207 k/uL (150-450) 06/15/19 11:20 Neutrophils % 81 % 06/15/19 11:20 Lymphocytes % 9 % 06/15/19 11:20 Monocytes % 6 % 06/15/19 11:20 Eosinophils % 1 % 06/15/19 11:20 Basophils % 2 % 06/15/19 11:20 Neutrophils # 5.9 k/uL (1.3-7.7) 06/15/19 11:20 Lymphocytes # 0.7 k/uL (1.0-4.8) L 06/15/19 11:20 Monocytes # 0.4 k/uL (0-1.0) 06/15/19 11:20 Eosinophils # 0.1 k/uL (0-0.7) 06/15/19 11:20 Basophils # 0.1 k/uL (0-0.2) 06/15/19 11:20 Sodium 140 mmol/L (137-145) 06/15/19 11:20 Potassium 4.2 mmol/L (3.5-5.1) 06/15/19 11:20 Chloride 103 mmol/L (98-107) 06/15/19 11:20 Carbon Dioxide 28 mmol/L (22-30) 06/15/19 11:20 Anion Gap 9 mmol/L 06/15/19 11:20 BUN 21 mg/dL (7-17) H 06/15/19 11:20 Creatinine 1.44 mg/dL (0.52-1.04) H 06/15/19 11:20 Est GFR (CKD-EPI)AfAm 38 (>60 ml/min/1.73 sqM) 06/15/19 11:20 Est GFR (CKD-EPI)NonAf 33 (>60 ml/min/1.73 sqM) 06/15/19 11:20 Glucose 116 mg/dL (74-99) H 06/15/19 11:20 Plasma Lactic Acid Yash 1.2 mmol/L (0.7-2.0) 06/15/19 11:20 Calcium 9.7 mg/dL (8.4-10.2) 06/15/19 11:20 Total Bilirubin 1.2 mg/dL (0.2-1.3) 06/15/19 11:20 AST 20 U/L (14-36) 06/15/19 11:20 ALT 12 U/L (4-34) 06/15/19 11:20 Alkaline Phosphatase 106 U/L (38-126) 06/15/19 11:20 Total Protein 7.9 g/dL (6.3-8.2) 06/15/19 11:20 Albumin 3.9 g/dL (3.5-5.0) 06/15/19 11:20 Amylase 58 U/L (30-110) 06/15/19 11:20 Lipase 21 U/L (23-300) L 06/15/19 11:20 Thrombosis Risk Factor Assmnt - DVT/VTE Prophylaxis DVT/VTE Prophylaxis: Low risk, early ambulation encouraged - Choose All That Apply Each Risk Factor Represents 3 Points: Age 75 years or older Thrombosis Risk Factor Assessment Total Risk Factor Score: 3 Thrombosis Risk Factor Assessment Level: Moderate Risk Assessment and Plan Assessment: 1 uncomplicated acute sigmoid diverticulitis, without any evidence of perforation, no abscess formation, patient is going to started on IV Levaquin and IV Flagyl, patient would have bowel rest, can have clear liquid diet at this time, lipase is normal, IV for hydration, monitor for decompensation. 2. Hypertension, monitor for evidence of decompensation including hypotension and sepsis, patient is on hydralazine 50 mg twice a day and losartan 100 mg daily, this are resumed 3. Prior history of total abdominal hysterectomy with bilateral salpingo- oophorectomy, cholecystectomy, appendectomy, no prior evidence of bowel obstruction the past. Last colonoscopy was over 20 years ago, and was done only once in her entire lifetime. 4. Acute renal sufficiency with underlying CK D stage III, creatinine ranges between 1.5-1.61 5. GI prophylaxis Protonix IV DVT prophylaxis, early ambulation Expected length of stay 2-3 days
[2019-06-15] MEDS: metroNIDAZOLE-NS PMX 500 MG in SALINE 1 100ML.BAG IVPB SCH (18:04)
[2019-06-15] MEDS: hydrALAZINE HCL 50 MG TAB PO SCH (21:35)
[2019-06-16] MEDS: metroNIDAZOLE-NS PMX 500 MG in SALINE 1 100ML.BAG IVPB SCH ×5 (00:05→23:15)
[2019-06-16 06:02] LABS: Appearance,Urine Clear (Clear); Bilirubin,Urine Negative (Negative); Blood,Urine Negative (Negative); Color,Urine Yellow; Glucose,Urine (UA) Negative (Negative); Ketones,Urine Trace (Negative); Leukocyte Esterase,Urine Small (Negative); Mucus,Urine Rare /hpf; Nitrite,Urine Negative (Negative); Protein,Urine Negative (Negative); RBC,Urine 1 /hpf (0-5); Specific Gravity,Urine 1.014 (1.001-1.035); Squamous Epithelial Cell,Urine <1 /hpf (0-4); Urobilinogen,Urine <2.0 mg/dL (<2.0); WBC,Urine 7 /hpf (0-5)
[2019-06-16] MEDS: LOSARTAN 50 MG TAB PO SCH (08:41)
[2019-06-16] MEDS: hydrALAZINE HCL 50 MG TAB PO SCH ×2 (08:41→22:01)
[2019-06-16 08:47] LABS: Basophils # (A) 0.1 k/uL (0-0.2); Basophils % (A) 2 %; Eosinophils # (A) 0.1 k/uL (0-0.7); Eosinophils % (A) 1 %; HCT 37.7 % (34.0-46.0); HGB 11.9 gm/dL (11.4-16.0); Lymphocytes % (A) 14 %; MCH 29.9 pg (25.0-35.0); MCHC 31.6 g/dL (31.0-37.0); MCV 94.5 fL (80.0-100.0); Mean Platelet Volume 7.9; Monocytes # (A) 0.6 k/uL (0-1.0); Monocytes % (A) 8 %; Neutrophils # (A) 5.1 k/uL (1.3-7.7); Neutrophils % (A) 74 %; Platelet Count 207 k/uL (150-450); RBC 3.98 m/uL (3.80-5.40); RDW 12.8 % (11.5-15.5); WBC 6.9 k/uL (3.8-10.6)
[2019-06-16 09:18] LABS: Calcium 8.9 mg/dL (8.4-10.2); Potassium 4.3 mmol/L (3.5-5.1)
[2019-06-16] MEDS ORDERED: ENALAPRILAT 1.25 MG/ML 1 ML VIAL IVP PRN (10:52)
[2019-06-16] MEDS ORDERED: HYDROmorphone 1 MG/ML 1 ML SYRINGE IVP STA (10:53)
[2019-06-16] MEDS: SODIUM CHLORIDE 0.9% 1,000 ML IV SCH ×2 (11:14→23:16)
[2019-06-16 12:02] LABS: Prothrombin Time 10.2 sec (9.0-12.0)
[2019-06-16] MEDS ORDERED: ONDANSETRON 4 MG/2 ML VIAL IVP PRN (12:18)
--- NOTE | 2019-06-16 12:20 | XR ---
EXAMINATION TYPE: XR abdomen 2V DATE OF EXAM: 06/16/2019 HISTORY: Pain. Technique: 2 views of the abdomen are submitted. Comparison: None. Findings: There is no convincing evidence of pneumoperitoneum. The Bowel gas pattern is nonspecific and nonobstructive. No sizable air-fluid levels are seen. No mass effects are noted. No renal calcifications are identified. IMPRESSION: 1. Nonspecific nonobstructive bowel gas pattern
--- NOTE | 2019-06-16 15:22 | P.GSCN ---
History of Present Illness Consult date: 06/16/19 History of present illness: this 89-year-old female began experiencing worsening abdominal pain over the last several days. She came to the emergency department and was found to have acute on top of diverticulitis on computed tomography scan. She states her pain is on her left lower quadrant. She's never had pain like this before. She has had hysterectomy cholecystectomy and appendectomy before in the past. She had a bowel movement which is liquid with no blood in it yesterday. No fevers or chills no other complaints at this time. Past Medical History Past Medical History: GERD/Reflux, Hypertension, Osteoarthritis (OA) Additional Past Medical History / Comment(s): lyme disease History of Any Multi-Drug Resistant Organisms: None Reported Past Surgical History: Appendectomy, Breast Surgery, Cholecystectomy, Heart Catheterization, Hysterectomy, Joint Replacement, Orthopedic Surgery Additional Past Surgical History / Comment(s): Cervical fracture with surgery, 07/22/18 cardiac cath-normal, colonoscopy with benign polypectomy, bilateral total knee arthroplasty, bilateral cataract removals/lens implants, bilateral feet hammer toe/bunion surgeries, R breast benign biopsy. Past Anesthesia/Blood Transfusion Reactions: No Reported Reaction Smoking Status: Never smoker - Past Family History Father Additional Family Medical History / Comment(s): Heart problems. Mother Family Medical History: Cancer Additional Family Medical History / Comment(s): "Female cancer" Medications and Allergies Home Medications Medication Instructions Recorded Confirmed Type Aspirin 81 mg PO BID 10/23/13 06/15/19 History Losartan Potassium [Cozaar] 100 mg PO DAILY 10/23/13 06/15/19 History Biotin 10,000 mcg PO DAILY 09/24/17 06/15/19 History Cholecalciferol [Vitamin D3] 1,000 unit PO DAILY 09/24/17 06/15/19 History Cyanocobalamin (Vitamin B-12) 2,500 mcg PO DAILY 09/24/17 06/15/19 History [Vitamin B12] Krill Oil 1,000 mg PO DAILY 09/24/17 06/15/19 History Magnesium Oxide [Mag-Ox] 250 mg PO DAILY 09/24/17 06/15/19 History Multivitamins, Thera [Multivitamin 1 tab PO DAILY 09/24/17 06/15/19 History (formulary)] hydrALAZINE HCL [Apresoline] 50 mg PO BID 09/24/17 06/15/19 History Potassium 99 mg PO DAILY 07/18/18 06/15/19 History Calcium Carbonate [Calcium] 600 mg PO HS 06/15/19 06/15/19 History Allergies Allergy/AdvReac Type Severity Reaction Status Date / Time morphine Allergy Nausea & Verified 06/15/19 12:49 Vomiting Penicillins Allergy Unknown Verified 06/15/19 12:49 Childhood Sulfa (Sulfonamide Allergy Unknown Verified 06/15/19 12:49 Antibiotics) Childhood Surgical - Exam Osteopathic Statement: *. No significant issues noted on an osteopathic structural exam other than those noted in the History and Physical/Consult. Vital Signs Temp Pulse Resp BP Pulse Ox 98.3 F 90 18 164/76 96 06/15/19 10:41 06/15/19 10:41 06/15/19 10:41 06/15/19 10:41 06/15/19 10:41 - General well developed, well nourished, no distress - Eyes PERRL - Neck trachea midline - Respiratory normal expansion, normal respiratory effort - Cardiovascular Rhythm: regular - Abdomen S/ND/ TTP in LLQ. no RRG - Neurologic normal coordination, normal sensation - Psychiatric oriented to time, oriented to person, oriented to place Results - Labs 06/16/19 07:54 06/16/19 07:54 Abnormal Lab Results - Last 24 Hours (Table) 06/16/19 06/16/19 Range/Units 05:05 07:54 BUN 20 H (7-17) mg/dL Creatinine 1.30 H (0.52-1.04) mg/dL Glucose 131 H (74-99) mg/dL Urine Ketones Trace H (Negative) Ur Leukocyte Esterase Small H (Negative) Urine WBC 7 H (0-5) /hpf Urine Mucus Rare H (None) /hpf Diabetes panel 06/16/19 Range/Units 07:54 Sodium 139 (137-145) mmol/L Potassium 4.3 (3.5-5.1) mmol/L Chloride 105 (98-107) mmol/L Carbon Dioxide 25 (22-30) mmol/L BUN 20 H (7-17) mg/dL Creatinine 1.30 H (0.52-1.04) mg/dL Glucose 131 H (74-99) mg/dL Calcium 8.9 (8.4-10.2) mg/dL Calcium panel 06/16/19 Range/Units 07:54 Calcium 8.9 (8.4-10.2) mg/dL Pituitary panel 06/16/19 Range/Units 07:54 Sodium 139 (137-145) mmol/L Potassium 4.3 (3.5-5.1) mmol/L Chloride 105 (98-107) mmol/L Carbon Dioxide 25 (22-30) mmol/L BUN 20 H (7-17) mg/dL Creatinine 1.30 H (0.52-1.04) mg/dL Glucose 131 H (74-99) mg/dL Calcium 8.9 (8.4-10.2) mg/dL Adrenal panel 06/16/19 Range/Units 07:54 Sodium 139 (137-145) mmol/L Potassium 4.3 (3.5-5.1) mmol/L Chloride 105 (98-107) mmol/L Carbon Dioxide 25 (22-30) mmol/L BUN 20 H (7-17) mg/dL Creatinine 1.30 H (0.52-1.04) mg/dL Glucose 131 H (74-99) mg/dL Calcium 8.9 (8.4-10.2) mg/dL Assessment and Plan Assessment: acute uncomplicated diverticulitis Plan: continue IV antibiotics and IV fluids. I agree with keeping patient nothing by mouth. As her pain improved she may start a clear liquid diet and advance as tolerated. No plans for surgical intervention acutely at this time. Patient will need a colonoscopy in 6 weeks after resolution of symptoms she can follow- up in my office to schedule this.
--- NOTE | 2019-06-16 15:27 | P.PN ---
Subjective Progress Note Date: 06/16/19 This is an 89-year-old lady patient of Dr. Horton with past medical history of hypertension, admitted to the hospital secondary to left local left lower quadrant abdominal pain for the past 4 days prior to admission. Patient has no fever no chills, has been chronically constipated, no melena no magician, no fever no chills, occasional constipation, and was seen in the emergency room secondary to abdominal pain and was found to have acute diverticulitis. Patient's last colonoscopy was over 20 years ago, and only had one done in her entire life. Patient had history of PERRY/BSO cholecystectomy appendectomy. no new medications placed by PCP, prior to admission. Emergency room , CAT scan of the abdomen and pelvis were done for evaluation of the abdominal pain, and was found to have moderate to large hiatal hernia, increasing in size, per distention stomach within hernia, prominence of gastric fold, nonspecific distention, moderate wall thickening proximal to mid section colon, with mild to moderate ill-defined fluid and fat stranding centered in the left anterior upper to mid pelvis. CT scan findings are consistent with acute diverticulitis without perforation. 06/16: Patient has been afebrile, blood pressure 137/77, pulse ox 95% on room air, heart rate 82. CBC within normal limits, BUN 20 creatinine 1.30, blood sugar 131. Patient is currently on IV Levaquin and IV Flagyl and IV fluids. Patient is complaining of increasing abdominal pain and nausea. She states she is not passing gas. Patient made nothing by mouth, abdominal x-ray obtained which revealed nonspecific findings. Dilaudid added for pain control and Zofran for nausea. IV fluids added and Vasotec for hypertension. Abdominal x-ray was nonspecific. Patient has subsequently been seen by Dr. walton with recommend ations to remain nothing by mouth until pain is improved and then start liquid diet. No plan for surgical intervention. Colonoscopy in 6 weeks after resolution of symptoms. Review Of Systems: Constitutional: No fever, no chills, no night sweats. No weight change. No weakness, fatigue or lethargy. No daytime sleepiness. EENT: No headache. No blurred vision or double vision, no loss of vision. No loss of Hearing, no ringing in the ears, no dizziness. No nasal drainage or congestion. No epistaxis. No sore throat. Lungs: No shortness of breath, cough, no sputum production. No wheezing. Cardiovascular: No chest pain, no lower extremity edema. No palpitations. No paroxysmal nocturnal dyspnea. No orthopnea. No lightheadedness or dizziness. No syncopal episodes. Abdominal: Reports abdominal pain. Reports abdominal distention. Reports nausea, vomiting. No diarrhea. No constipation. No bloody or tarry stools reports loss of appetite. Genitourinary: No dysuria, increased frequency, urgency. No urinary retention. Musculoskeletal: No myalgias. No muscle weakness, no gait dysfunction, no frequent falls. No back pain. No neck pain. Integumentary: No wounds, no lesions. No rash or pruritus. No unusual bruising. No change in hair or nails. Neurologic: No aphasia. No facial droop. No change in mentation. No head injury. No headache. No paralysis. No paresthesia. Psychiatric: No depression. No anxiety. No mood swings. Endocrine: No abnormal blood sugars. No weight change. No excessive sweating or thirst. No cold intolerance. Objective - Vital Signs Vital signs: Vital Signs Temp 98.4 F 06/16/19 04:30 Pulse 82 06/16/19 04:30 Resp 16 06/16/19 04:30 BP 137/77 06/16/19 04:30 Pulse Ox 95 06/16/19 04:30 Intake & Output 06/15/19 06/16/19 06/16/19 18:59 06:59 18:59 Weight 77.111 kg Other: # Voids 1 1 # Bowel Movements 1 - Exam Gen: This is an 89-year-old female. Patient is resting in bed and appears to be comfortable and in no acute distress. HEENT: Head is atraumatic, normocephalic. Pupils equal, round. Sclerae is anicteric. NECK: Supple. No JVD. No lymphadenopathy. No thyromegaly. LUNGS: Clear to auscultation. No wheezes or rhonchi. No intercostal retractions. HEART: Regular rate and rhythm. No murmur. ABDOMEN: Soft. Bowel sounds are present. No masses. Left lower quadrant tend erness, worse from yesterday. EXTREMITIES: No pedal edema. No calf tenderness. NEUROLOGICAL: Patient is awake, alert and oriented x3. Cranial nerves 2 through 12 are grossly intact. - Labs CBC & Chem 7: 06/16/19 07:54 06/16/19 07:54 Labs: Abnormal Lab Results - Last 24 Hours (Table) 06/15/19 06/15/19 06/16/19 Range/Units 11:20 11:20 05:05 Lymphocytes # 0.7 L (1.0-4.8) k/uL BUN 21 H (7-17) mg/dL Creatinine 1.44 H (0.52-1.04) mg/dL Glucose 116 H (74-99) mg/dL Lipase 21 L (23-300) U/L Urine Ketones Trace H (Negative) Ur Leukocyte Esterase Small H (Negative) Urine WBC 7 H (0-5) /hpf Urine Mucus Rare H (None) /hpf 06/16/19 Range/Units 07:54 Lymphocytes # (1.0-4.8) k/uL BUN 20 H (7-17) mg/dL Creatinine 1.30 H (0.52-1.04) mg/dL Glucose 131 H (74-99) mg/dL Lipase (23-300) U/L Urine Ketones (Negative) Ur Leukocyte Esterase (Negative) Urine WBC (0-5) /hpf Urine Mucus (None) /hpf Assessment and Plan Plan: 1. Uncomplicated acute sigmoid diverticulitis, without any evidence of perforation, no abscess formation. Continue IV Levaquin and IV Flagyl, patient made nothing by mouth, consult with Dr. walton appreciated. IV Dilaudid added for pain control and Zofran for nausea. IV fluids. 2. Hypertension. Continue hydralazine 50 mg twice a day and losartan 100 mg daily. Vasotec IV for hypertension. 3. Prior history of total abdominal hysterectomy with bilateral salpingo- oophorectomy, cholecystectomy, appendectomy, no prior evidence of bowel obstruction the past. Last colonoscopy was over 20 years ago, and was done only once in her entire lifetime. 4. CKD stage III. Baseline creatinine ranges between 1.5-1.61. 5. GI prophylaxis. Protonix IV 6. DVT prophylaxis, early ambulation Discharge plan: Return home Impression and plan of care have been directed as dictated by the signing physician. Ernestina Ramirez nurse practitioner acting as scribe for signing physician.
[2019-06-16] MEDS: HYDROmorphone 0.5 MG/0.5 ML SYRINGE IVP PRN ×2 (18:18→23:19)
[2019-06-16] MEDS: MELATONIN 3 MG TABLET PO SCH (22:45)
[2019-06-17] MEDS: metroNIDAZOLE-NS PMX 500 MG in SALINE 1 100ML.BAG IVPB SCH ×3 (06:09→20:30)
[2019-06-17] MEDS: HYDROmorphone 0.5 MG/0.5 ML SYRINGE IVP PRN ×3 (06:10→22:44)
[2019-06-17 07:42] LABS: Basophils % (A) 0 %; Eosinophils # (A) 0.1 k/uL (0-0.7); Eosinophils % (A) 1 %; HCT 34.7 % (34.0-46.0); HGB 11.1 gm/dL (11.4-16.0); Lymphocytes # (A) 0.7 k/uL (1.0-4.8); Lymphocytes % (A) 10 %; MCH 30.8 pg (25.0-35.0); MCV 96.1 fL (80.0-100.0); Monocytes # (A) 0.6 k/uL (0-1.0); Monocytes % (A) 8 %; Neutrophils # (A) 6.2 k/uL (1.3-7.7); Neutrophils % (A) 81 %; Platelet Count 168 k/uL (150-450); RBC 3.62 m/uL (3.80-5.40); RDW 12.6 % (11.5-15.5); WBC 7.7 k/uL (3.8-10.6)
[2019-06-17 07:57] LABS: Calcium 8.5 mg/dL (8.4-10.2); Potassium 4.1 mmol/L (3.5-5.1)
[2019-06-17] MEDS: LOSARTAN 50 MG TAB PO SCH (09:06)
[2019-06-17] MEDS: HEPARIN SODIUM,PORCINE 5,000 UNIT/ML 1 ML VIAL SQ SCH ×2 (09:06→20:32)
[2019-06-17] MEDS: PANTOPRAZOLE 40 MG/10 ML VIAL IVP SCH (09:07)
[2019-06-17] MEDS: hydrALAZINE HCL 50 MG TAB PO SCH ×2 (09:07→20:31)
--- NOTE | 2019-06-17 10:49 | P.PN ---
Subjective Progress Note Date: 06/17/19 This is an 89-year-old lady patient of Dr. Horton with past medical history of hypertension, admitted to the hospital secondary to left local left lower quadrant abdominal pain for the past 4 days prior to admission. Patient has no fever no chills, has been chronically constipated, no melena no magician, no fever no chills, occasional constipation, and was seen in the emergency room secondary to abdominal pain and was found to have acute diverticulitis. Patient's last colonoscopy was over 20 years ago, and only had one done in her entire life. Patient had history of PERRY/BSO cholecystectomy appendectomy. no new medications placed by PCP, prior to admission. Emergency room , CAT scan of the abdomen and pelvis were done for evaluation of the abdominal pain, and was found to have moderate to large hiatal hernia, increasing in size, per distention stomach within hernia, prominence of gastric fold, nonspecific distention, moderate wall thickening proximal to mid section colon, with mild to moderate ill-defined fluid and fat stranding centered in the left anterior upper to mid pelvis. CT scan findings are consistent with acute diverticulitis without perforation. 06/16: Patient has been afebrile, blood pressure 137/77, pulse ox 95% on room air, heart rate 82. CBC within normal limits, BUN 20 creatinine 1.30, blood sugar 131. Patient is currently on IV Levaquin and IV Flagyl and IV fluids. Patient is complaining of increasing abdominal pain and nausea. She states she is not passing gas. Patient made nothing by mouth, abdominal x-ray obtained which revealed nonspecific findings. Dilaudid added for pain control and Zofran for nausea. IV fluids added and Vasotec for hypertension. Abdominal x-ray was nonspecific. Patient has subsequently been seen by Dr. walton with recommend ations to remain nothing by mouth until pain is improved and then start liquid diet. No plan for surgical intervention. Colonoscopy in 6 weeks after resolution of symptoms. 06/17: Patient has been afebrile, heart rate 97, oh pressure 121/66, pulse ox 92% on room air. Repeat lab work reveals WBC 7.7, hemoglobin 11.1, platelet count 168, BUN 19, creatinine 1.38, electrolytes within normal limits. Blood cultures no growth at 24 hours. Severe abdominal pain has subsided. She continues to have left lower quadrant tenderness. We will start clear liquid diet. Patient is complaining of bilateral foot pain but tender in ankle. Uric acid will be ordered and colchicine added at low dose. Review Of Systems: Constitutional: No fever, no chills, no night sweats. No weight change. No weakness, fatigue or lethargy. No daytime sleepiness. EENT: No headache. No blurred vision or double vision, no loss of vision. No loss of Hearing, no ringing in the ears, no dizziness. No nasal drainage or congestion. No epistaxis. No sore throat. Lungs: No shortness of breath, cough, no sputum production. No wheezing. Cardiovascular: No chest pain, no lower extremity edema. No palpitations. No paroxysmal nocturnal dyspnea. No orthopnea. No lightheadedness or dizziness. No syncopal episodes. Abdominal: Reports abdominal pain. Reports abdominal distention. Reports nausea, vomiting. No diarrhea. No constipation. No bloody or tarry stools reports loss of appetite. Genitourinary: No dysuria, increased frequency, urgency. No urinary retention. Musculoskeletal: No myalgias. No muscle weakness, no gait dysfunction, no frequent falls. No back pain. No neck pain. Reports bilat ankle and foot pain. Integumentary: No wounds, no lesions. No rash or pruritus. No unusual bruising. No change in hair or nails. Neurologic: No aphasia. No facial droop. No change in mentation. No head injury. No headache. No paralysis. No paresthesia. Psychiatric: No depression. No anxiety. No mood swings. Endocrine: No abnormal blood sugars. No weight change. No excessive sweating or thirst. No cold intolerance. Objective - Vital Signs Vital signs: Vital Signs Temp 99.9 F H 06/17/19 05:15 Pulse 97 06/17/19 05:15 Resp 16 06/17/19 05:15 BP 121/66 06/17/19 05:15 Pulse Ox 92 L 06/17/19 05:15 Intake & Output 06/16/19 06/17/19 06/17/19 18:59 06:59 18:59 Intake Total 940 Balance 940 Intake: Intake, IV Titration 400 Amount Sodium Chloride 0.9% 1, 300 000 ml @ 75 mls/hr IV . [id number] [facility] Rx#:[id number] metroNIDAZOLE-NS PMX 500 100 mg In Saline 1 100ml.bag @ 100 mls/hr IVPB Q6HR [place] Rx#:[id number] Oral 540 Other: # Voids 3 2 - Exam Gen: This is an 89-year-old female. Patient is resting in bed and appears to be comfortable and in no acute distress. HEENT: Head is atraumatic, normocephalic. Pupils equal, round. Sclerae is anicteric. NECK: Supple. No JVD. No lymphadenopathy. No thyromegaly. LUNGS: Clear to auscultation. No wheezes or rhonchi. No intercostal retractions. HEART: Regular rate and rhythm. No murmur. ABDOMEN: Soft. Bowel sounds are present. No masses. Left lower quadrant tenderness, improving. EXTREMITIES: No pedal edema. No calf tenderness. NEUROLOGICAL: Patient is awake, alert and oriented x3. Cranial nerves 2 through 12 are grossly intact. - Labs CBC & Chem 7: 06/17/19 07:06 06/17/19 07:06 Labs: Abnormal Lab Results - Last 24 Hours (Table) 06/16/19 06/17/19 06/17/19 Range/Units 07:54 07:06 07:06 RBC 3.62 L (3.80-5.40) m/uL Hgb 11.1 L (11.4-16.0) gm/dL Lymphocytes # 0.7 L (1.0-4.8) k/uL BUN 20 H 19 H (7-17) mg/dL Creatinine 1.30 H 1.38 H (0.52-1.04) mg/dL Glucose 131 H 108 H (74-99) mg/dL Microbiology - Last 24 Hours (Table) 06/15/19 14:00 Blood Culture - Preliminary Blood No Growth after 24 hours Assessment and Plan Plan: 1. Uncomplicated acute sigmoid diverticulitis, without any evidence of perforation, no abscess formation. Continue IV Levaquin and IV Flagyl, patient made nothing by mouth, consult with Dr. walton appreciated. IV Dilaudid added for pain control and Zofran for nausea. IV fluids. 2. Hypertension. Continue hydralazine 50 mg twice a day and losartan 100 mg daily. Vasotec IV for hypertension. 3. Prior history of total abdominal hysterectomy with bilateral salpingo-oophorectomy, cholecystectomy, appendectomy, no prior evidence of bowel obstruction the past. Last colonoscopy was over 20 years ago, and was done only once in her entire lifetime. 4. CKD stage III. Baseline creatinine ranges between 1.5-1.61. 5. GI prophylaxis. Protonix IV 6. DVT prophylaxis, heparin subcu 7. Ankle and foot pain, possible gout. Uric acid level added and colchicine added. Discharge plan: Return home Impression and plan of care have been directed as dictated by the signing physician. Ernestina Ramirez nurse practitioner acting as scribe for signing physician.
[2019-06-17] MEDS: CYANOCOBALAMIN 500 MCG TAB PO SCH (12:29)
[2019-06-17] MEDS: COLCHICINE 0.6 MG EACH PO SCH (12:30)
[2019-06-17] MEDS ORDERED: LEVOFLOXACIN 750MG-D5W PMX 750 MG in DEXTROSE/WATER 1 150ML.BAG IVPB SCH (14:00)
[2019-06-17] MEDS: SODIUM CHLORIDE 0.9% 1,000 ML IV SCH (14:53)
--- NOTE | 2019-06-17 17:05 | P.PN ---
Subjective Progress Note Date: 06/17/19 pain improved. Objective - Vital Signs Vital signs: Vital Signs Temp 99.1 F 06/17/19 14:38 Pulse 93 06/17/19 14:38 Resp 18 06/17/19 14:38 BP 125/68 06/17/19 14:38 Pulse Ox 98 06/17/19 14:38 Intake & Output 06/16/19 06/17/19 06/17/19 18:59 06:59 18:59 Intake Total 940 700 Balance 940 700 Intake: Intake, IV Titration 400 700 Amount Sodium Chloride 0.9% 1, 300 600 000 ml @ 75 mls/hr IV . [id number] [place] Rx#:[id number] metroNIDAZOLE-NS PMX 500 100 100 mg In Saline 1 100ml.bag @ 100 mls/hr IVPB Q6HR [place] Rx#:[id number] Oral 540 Other: # Voids 3 2 - Constitutional General appearance: Present: cooperative - Respiratory Details: nonlabored - Gastrointestinal Gastrointestinal Comment(s): S/ND mild TTP LLQ - Psychiatric Psychiatric: Present: A&O x's 3 - Labs CBC & Chem 7: 06/17/19 07:06 06/17/19 07:06 Labs: Abnormal Lab Results - Last 24 Hours (Table) 06/17/19 06/17/19 Range/Units 07:06 07:06 RBC 3.62 L (3.80-5.40) m/uL Hgb 11.1 L (11.4-16.0) gm/dL Lymphocytes # 0.7 L (1.0-4.8) k/uL BUN 19 H (7-17) mg/dL Creatinine 1.38 H (0.52-1.04) mg/dL Glucose 108 H (74-99) mg/dL Microbiology - Last 24 Hours (Table) 06/15/19 14:00 Blood Culture - Preliminary Blood No Growth after 48 hours Assessment and Plan Assessment: acute uncomplicated diverticulitis Plan: Cont ABX. Clears as tolerated. No plans for surgical intervention
[2019-06-17] MEDS: MELATONIN 3 MG TABLET PO SCH (20:31)
[2019-06-18] MEDS: metroNIDAZOLE-NS PMX 500 MG in SALINE 1 100ML.BAG IVPB SCH ×5 (01:49→23:44)
[2019-06-18] MEDS: SODIUM CHLORIDE 0.9% 1,000 ML IV SCH ×2 (03:23→14:11)
[2019-06-18 08:17] LABS: Basophils % (A) 0 %; Eosinophils # (A) 0.1 k/uL (0-0.7); Eosinophils % (A) 1 %; HCT 32.9 % (34.0-46.0); HGB 10.8 gm/dL (11.4-16.0); Lymphocytes # (A) 0.7 k/uL (1.0-4.8); Lymphocytes % (A) 11 %; MCH 31.5 pg (25.0-35.0); MCHC 32.8 g/dL (31.0-37.0); MCV 95.8 fL (80.0-100.0); Mean Platelet Volume 7.7; Monocytes # (A) 0.5 k/uL (0-1.0); Monocytes % (A) 8 %; Neutrophils # (A) 4.7 k/uL (1.3-7.7); Neutrophils % (A) 77 %; Platelet Count 177 k/uL (150-450); RBC 3.44 m/uL (3.80-5.40); RDW 12.5 % (11.5-15.5); WBC 6.1 k/uL (3.8-10.6)
[2019-06-18 08:28] LABS: Potassium 4.1 mmol/L (3.5-5.1)
[2019-06-18] MEDS: LOSARTAN 50 MG TAB PO SCH (08:51)
[2019-06-18] MEDS: COLCHICINE 0.6 MG EACH PO SCH (08:52)
[2019-06-18] MEDS: HEPARIN SODIUM,PORCINE 5,000 UNIT/ML 1 ML VIAL SQ SCH ×2 (08:52→21:24)
[2019-06-18] MEDS: CYANOCOBALAMIN 500 MCG TAB PO SCH (08:52)
[2019-06-18] MEDS: PANTOPRAZOLE 40 MG/10 ML VIAL IVP SCH (08:52)
[2019-06-18] MEDS: hydrALAZINE HCL 50 MG TAB PO SCH ×2 (08:52→21:24)
[2019-06-18] MEDS: methylPREDNISolone SOD SUCCI 125 MG/2 ML VIAL IV SCH ×3 (11:48→23:44)
[2019-06-18] MEDS: INSULIN ASPART (NovoLOG) 100 UNIT/ML VIAL SQ SCH ×3 (12:40→21:34)
--- NOTE | 2019-06-18 15:20 | P.PN ---
Subjective Progress Note Date: 06/18/19 This is an 89-year-old lady patient of Dr. Horton with past medical history of hypertension, admitted to the hospital secondary to left local left lower quadrant abdominal pain for the past 4 days prior to admission. Patient has no fever no chills, has been chronically constipated, no melena no magician, no fever no chills, occasional constipation, and was seen in the emergency room secondary to abdominal pain and was found to have acute diverticulitis. Patient's last colonoscopy was over 20 years ago, and only had one done in her entire life. Patient had history of PERRY/BSO cholecystectomy appendectomy. no new medications placed by PCP, prior to admission. Emergency room , CAT scan of the abdomen and pelvis were done for evaluation of the abdominal pain, and was found to have moderate to large hiatal hernia, increasing in size, per distention stomach within hernia, prominence of gastric fold, nonspecific distention, moderate wall thickening proximal to mid section colon, with mild to moderate ill-defined fluid and fat stranding centered in the left anterior upper to mid pelvis. CT scan findings are consistent with acute diverticulitis without perforation. 06/16: Patient has been afebrile, blood pressure 137/77, pulse ox 95% on room air, heart rate 82. CBC within normal limits, BUN 20 creatinine 1.30, blood sugar 131. Patient is currently on IV Levaquin and IV Flagyl and IV fluids. Patient is complaining of increasing abdominal pain and nausea. She states she is not passing gas. Patient made nothing by mouth, abdominal x-ray obtained which revealed nonspecific findings. Dilaudid added for pain control and Zofran for nausea. IV fluids added and Vasotec for hypertension. Abdominal x-ray was nonspecific. Patient has subsequently been seen by Dr. walton with recommend ations to remain nothing by mouth until pain is improved and then start liquid diet. No plan for surgical intervention. Colonoscopy in 6 weeks after resolution of symptoms. 06/17: Patient has been afebrile, heart rate 97, oh pressure 121/66, pulse ox 92% on room air. Repeat lab work reveals WBC 7.7, hemoglobin 11.1, platelet count 168, BUN 19, creatinine 1.38, electrolytes within normal limits. Blood cultures no growth at 24 hours. Severe abdominal pain has subsided. She continues to have left lower quadrant tenderness. We will start clear liquid diet. Patient is complaining of bilateral foot pain but tender in ankle. Uric acid will be ordered and colchicine added at low dose. 06/18: Patient continues to be afebrile, heart rate 82, blood pressure 119/70, pulse ox 93% on room air. WBC 6.1, hemoglobin 10.8, BUN 17 and creatinine 1.12. Blood culture no growth at 48 hours. Patient required straight catheterization due to urinary retention with return of 700. Patient has been able to void on the commode chair this morning. She is complaining of weakness secondary to foot pain. She continues to have bilateral foot ankle and now knee pain as well as back pain. She states in general she just doesn't feel good. Patient will be started on IV Solu-Medrol 60 mg every 6 hours for 3 doses. Uric acid came back normal at 6.8. PT and OT will be added to evaluate for subacute rehab. Abdominal pain is improving. We will advance diet to full liquids. Review Of Systems: Constitutional: No fever, no chills, no night sweats. No weight change. No weakness, fatigue or lethargy. No daytime sleepiness. EENT: No headache. No blurred vision or double vision, no loss of vision. No loss of Hearing, no ringing in the ears, no dizziness. No nasal drainage or congestion. No epistaxis. No sore throat. Lungs: No shortness of breath, cough, no sputum production. No wheezing. Cardiovascular: No chest pain, no lower extremity edema. No palpitations. No paroxysmal nocturnal dyspnea. No orthopnea. No lightheadedness or dizziness. No syncopal episodes. Abdominal: Reports abdominal pain. Reports abdominal distention. Reports nausea, vomiting. No diarrhea. No constipation. No bloody or tarry stools reports loss of appetite. Genitourinary: No dysuria, increased frequency, urgency. No urinary retention. Musculoskeletal: No myalgias. No muscle weakness, no gait dysfunction, no frequent falls. No back pain. No neck pain. Reports bilat ankle and foot pain. Reports back discomfort Integumentary: No wounds, no lesions. No rash or pruritus. No unusual bruising. No change in hair or nails. Neurologic: No aphasia. No facial droop. No change in mentation. No head injury. No headache. No paralysis. No paresthesia. Psychiatric: No depression. No anxiety. No mood swings. Endocrine: No abnormal blood sugars. No weight change. No excessive sweating or thirst. No cold intolerance. Objective - Vital Signs Vital signs: Vital Signs Temp 99.3 F 06/18/19 04:15 Pulse 82 06/18/19 04:15 Resp 20 06/18/19 04:15 BP 119/70 06/18/19 04:15 Pulse Ox 93 L 06/18/19 04:15 Intake & Output 06/17/19 06/18/19 06/18/19 18:59 06:59 18:59 Intake Total 700 300 Output Total 1400 Balance 700 -1100 Intake: Intake, IV Titration 700 Amount Sodium Chloride 0.9% 1, 600 000 ml @ 75 mls/hr IV . [id number] AL Rx#:[id number] metroNIDAZOLE-NS PMX 500 100 mg In Saline 1 100ml.bag @ 100 mls/hr IVPB Q6HR AL Rx#:[id number] Oral 300 Output: Urine 1400 Straight 700 Post Void Residual 0 Other: Voiding Method Bedside Commode Bedside Commode - Exam Gen: This is an 89-year-old female. Patient is resting in bed and appears to be comfortable and in no acute distress. HEENT: Head is atraumatic, normocephalic. Pupils equal, round. Sclerae is anicteric. NECK: Supple. No JVD. No lymphadenopathy. No thyromegaly. LUNGS: Clear to auscultation. No wheezes or rhonchi. No intercostal retractions. HEART: Regular rate and rhythm. No murmur. ABDOMEN: Soft. Bowel sounds are present. No masses. Left lower quadrant tenderness, improving. EXTREMITIES: No pedal edema. No calf tenderness. Tenderness in bilateral ankles. NEUROLOGICAL: Patient is awake, alert and oriented x3. Cranial nerves 2 through 12 are grossly intact. - Labs CBC & Chem 7: 06/18/19 07:29 06/18/19 07:29 Labs: Abnormal Lab Results - Last 24 Hours (Table) 06/18/19 06/18/19 Range/Units 07:29 07:29 RBC 3.44 L (3.80-5.40) m/uL Hgb 10.8 L (11.4-16.0) gm/dL Hct 32.9 L (34.0-46.0) % Lymphocytes # 0.7 L (1.0-4.8) k/uL Creatinine 1.12 H (0.52-1.04) mg/dL Glucose 105 H (74-99) mg/dL Calcium 8.0 L (8.4-10.2) mg/dL Microbiology - Last 24 Hours (Table) 06/15/19 14:00 Blood Culture - Preliminary Blood No Growth after 48 hours Assessment and Plan Plan: 1. Uncomplicated acute sigmoid diverticulitis, without any evidence of perforation, no abscess formation. Continue IV Levaquin and IV Flagyl, patient made nothing by mouth, consult with Dr. walton appreciated. IV Dilaudid added for pain control and Zofran for nausea. IV fluids. 2. Hypertension. Continue hydralazine 50 mg twice a day and losartan 100 mg daily. Vasotec IV for hypertension. 3. Prior history of total abdominal hysterectomy with bilateral salpingo- oophorectomy, cholecystectomy, appendectomy, no prior evidence of bowel obstruction the past. Last colonoscopy was over 20 years ago, and was done only once in her entire lifetime. 4. CKD stage III. Baseline creatinine ranges between 1.5-1.61. 5. GI prophylaxis. Protonix IV 6. DVT prophylaxis, heparin subcu 7. Ankle and foot pain, possible gout. Uric acid level added and colchicine added. 8. Urinary retention requiring straight catheterization. Discharge plan: Return home, to be determined. PT and OT evaluations appreciated with recommendations for subacute rehab. [employer] to follow- up.. Impression and plan of care have been directed as dictated by the signing physician. Ernestina Ramirez nurse practitioner acting as scribe for signing physician.
--- NOTE | 2019-06-18 15:51 | P.PN ---
Subjective Progress Note Date: 06/18/19 pain improved. having BM. Tolerating liquids Objective - Vital Signs Vital signs: Vital Signs Temp 98.3 F 06/18/19 14:15 Pulse 84 06/18/19 14:15 Resp 20 06/18/19 14:15 BP 160/74 06/18/19 14:15 Pulse Ox 95 06/18/19 14:15 Intake & Output 06/17/19 06/18/19 06/18/19 18:59 06:59 18:59 Intake Total 700 300 720 Output Total 1400 500 Balance 700 -1100 220 Intake: Intake, IV Titration 700 Amount Sodium Chloride 0.9% 1, 600 000 ml @ 75 mls/hr IV . [id number] AL Rx#:[id number] metroNIDAZOLE-NS PMX 500 100 mg In Saline 1 100ml.bag @ 100 mls/hr IVPB Q6HR AL Rx#:[id number] Oral 300 720 Output: Urine 1400 500 Straight 700 Post Void Residual 0 Other: Voiding Method Bedside Commode Bedside Commode # Voids 0 # Bowel Movements 0 - Constitutional General appearance: Present: cooperative - Respiratory Details: nonlabored - Cardiovascular Rhythm: regular - Gastrointestinal Gastrointestinal Comment(s): S/ND/ LLQ TTP. No RRG - Labs CBC & Chem 7: 06/18/19 07:29 06/18/19 07:29 Labs: Abnormal Lab Results - Last 24 Hours (Table) 06/18/19 06/18/19 Range/Units 07:29 07:29 RBC 3.44 L (3.80-5.40) m/uL Hgb 10.8 L (11.4-16.0) gm/dL Hct 32.9 L (34.0-46.0) % Lymphocytes # 0.7 L (1.0-4.8) k/uL Creatinine 1.12 H (0.52-1.04) mg/dL Glucose 105 H (74-99) mg/dL Calcium 8.0 L (8.4-10.2) mg/dL Microbiology - Last 24 Hours (Table) 06/15/19 14:00 Blood Culture - Preliminary Blood No Growth after 48 hours Assessment and Plan Assessment: acute uncomplicated diverticulitis Plan: Cont ABX. diet as tolerated. No plans for surgical intervention. Follow up as outpatient for evaluation for colonoscopy
[2019-06-18 16:59] LABS: Glucose,Whole Blood 166 mg/dL (75-99)
[2019-06-18 20:23] LABS: Glucose,Whole Blood 339 mg/dL (75-99)
[2019-06-18] MEDS: MELATONIN 3 MG TABLET PO SCH (21:24)
[2019-06-18] MEDS ORDERED: INSULIN REGULAR 100 UNIT/ML VIAL SQ ONE (22:04)
[2019-06-18] MEDS ORDERED: INSULIN ASPART (NovoLOG) 100 UNIT/ML VIAL SQ ONE (22:12)
[2019-06-19] MEDS: metroNIDAZOLE-NS PMX 500 MG in SALINE 1 100ML.BAG IVPB SCH ×3 (05:28→17:19)
[2019-06-19] MEDS: SODIUM CHLORIDE 0.9% 1,000 ML IV SCH (05:28)
[2019-06-19 07:04] LABS: Glucose,Whole Blood 158 mg/dL (75-99)
[2019-06-19] MEDS: COLCHICINE 0.6 MG EACH PO SCH (08:10)
[2019-06-19] MEDS: INSULIN ASPART (NovoLOG) 100 UNIT/ML VIAL SQ SCH (08:11)
[2019-06-19] MEDS: PANTOPRAZOLE 40 MG TABLET PO SCH (08:12)
[2019-06-19] MEDS: CYANOCOBALAMIN 500 MCG TAB PO SCH (08:12)
[2019-06-19] MEDS: hydrALAZINE HCL 50 MG TAB PO SCH ×2 (08:12→20:47)
[2019-06-19] MEDS: LOSARTAN 50 MG TAB PO SCH (08:12)
[2019-06-19] MEDS: HEPARIN SODIUM,PORCINE 5,000 UNIT/ML 1 ML VIAL SQ SCH ×2 (08:13→20:47)
--- NOTE | 2019-06-19 15:35 | P.PN ---
Subjective Progress Note Date: 06/19/19 This is an 89-year-old lady patient of Dr. Horton with past medical history of hypertension, admitted to the hospital secondary to left local left lower quadrant abdominal pain for the past 4 days prior to admission. Patient has no fever no chills, has been chronically constipated, no melena no magician, no fever no chills, occasional constipation, and was seen in the emergency room secondary to abdominal pain and was found to have acute diverticulitis. Patient's last colonoscopy was over 20 years ago, and only had one done in her entire life. Patient had history of PERRY/BSO cholecystectomy appendectomy. no new medications placed by PCP, prior to admission. Emergency room , CAT scan of the abdomen and pelvis were done for evaluation of the abdominal pain, and was found to have moderate to large hiatal hernia, increasing in size, per distention stomach within hernia, prominence of gastric fold, nonspecific distention, moderate wall thickening proximal to mid section colon, with mild to moderate ill-defined fluid and fat stranding centered in the left anterior upper to mid pelvis. CT scan findings are consistent with acute diverticulitis without perforation. 06/16: Patient has been afebrile, blood pressure 137/77, pulse ox 95% on room air, heart rate 82. CBC within normal limits, BUN 20 creatinine 1.30, blood sugar 131. Patient is currently on IV Levaquin and IV Flagyl and IV fluids. Patient is complaining of increasing abdominal pain and nausea. She states she is not passing gas. Patient made nothing by mouth, abdominal x-ray obtained which revealed nonspecific findings. Dilaudid added for pain control and Zofran for nausea. IV fluids added and Vasotec for hypertension. Abdominal x-ray was nonspecific. Patient has subsequently been seen by Dr. boyd with recommend ations to remain nothing by mouth until pain is improved and then start liquid diet. No plan for surgical intervention. Colonoscopy in 6 weeks after resolution of symptoms. 06/17: Patient has been afebrile, heart rate 97, oh pressure 121/66, pulse ox 92% on room air. Repeat lab work reveals WBC 7.7, hemoglobin 11.1, platelet count 168, BUN 19, creatinine 1.38, electrolytes within normal limits. Blood cultures no growth at 24 hours. Severe abdominal pain has subsided. She continues to have left lower quadrant tenderness. We will start clear liquid diet. Patient is complaining of bilateral foot pain but tender in ankle. Uric acid will be ordered and colchicine added at low dose. 06/18: Patient continues to be afebrile, heart rate 82, blood pressure 119/70, pulse ox 93% on room air. WBC 6.1, hemoglobin 10.8, BUN 17 and creatinine 1.12. Blood culture no growth at 48 hours. Patient required straight catheterization due to urinary retention with return of 700. Patient has been able to void on the commode chair this morning. She is complaining of weakness secondary to foot pain. She continues to have bilateral foot ankle and now knee pain as well as back pain. She states in general she just doesn't feel good. Patient will be started on IV Solu-Medrol 60 mg every 6 hours for 3 doses. Uric acid came back normal at 6.8. PT and OT will be added to evaluate for subacute rehab. Abdominal pain is improving. We will advance diet to full liquids. 06/19: Patient states that her foot pain is much improved. We will plan to discontinue Levaquin in case this is a culprit. She has been afebrile, heart rate 67, blood pressure 126/67, pulse ox 95% on room air. Blood sugars running between 158 and 339. Hyperglycemia secondary to steroids. Abdominal pain is resolving and diet will be advanced. She has had no nausea or vomiting. The patient has been doing well with physical therapy and plans to go home versus subacute rehab. We'll plan to monitor overnight and discharged on Saturday. Review Of Systems: Constitutional: No fever, no chills, no night sweats. No weight change. No weakness, fatigue or lethargy. No daytime sleepiness. EENT: No headache. No blurred vision or double vision, no loss of vision. No loss of Hearing, no ringing in the ears, no dizziness. No nasal drainage or congestion. No epistaxis. No sore throat. Lungs: No shortness of breath, cough, no sputum production. No wheezing. Cardiovascular: No chest pain, no lower extremity edema. No palpitations. No paroxysmal nocturnal dyspnea. No orthopnea. No lightheadedness or dizziness. No syncopal episodes. Abdominal: Reports abdominal pain. Reports abdominal distention. Denies na usea, vomiting. No diarrhea. No constipation. No bloody or tarry stools reports loss of appetite. Genitourinary: No dysuria, increased frequency, urgency. No urinary retention. Musculoskeletal: No myalgias. No muscle weakness, no gait dysfunction, no frequent falls. No back pain. No neck pain. Reports bilat ankle and foot pain. Reports back discomfort Integumentary: No wounds, no lesions. No rash or pruritus. No unusual bruising. No change in hair or nails. Neurologic: No aphasia. No facial droop. No change in mentation. No head injury. No headache. No paralysis. No paresthesia. Psychiatric: No depression. No anxiety. No mood swings. Endocrine: No abnormal blood sugars. No weight change. No excessive sweating or thirst. No cold intolerance. Objective - Vital Signs Vital signs: Vital Signs Temp 98.2 F 06/19/19 04:57 Pulse 67 06/19/19 04:57 Resp 16 06/19/19 04:57 BP 126/67 06/19/19 04:57 Pulse Ox 95 06/19/19 04:57 Intake & Output 06/18/19 06/19/19 06/19/19 18:59 06:59 18:59 Intake Total 720 Output Total 500 300 Balance 220 -300 Intake: Oral 720 Output: Urine 500 300 Other: Voiding Method Bedside Commode Bedside Commode Bedside Commode # Voids 1 0 # Bowel Movements 0 - Exam Gen: This is an 89-year-old female. Patient is resting in bed and appears to be comfortable and in no acute distress. HEENT: Head is atraumatic, normocephalic. Pupils equal, round. Sclerae is ani cteric. NECK: Supple. No JVD. No lymphadenopathy. No thyromegaly. LUNGS: Clear to auscultation. No wheezes or rhonchi. No intercostal retractions. HEART: Regular rate and rhythm. No murmur. ABDOMEN: Soft. Bowel sounds are present. No masses. Left lower quadrant tenderness, improving. EXTREMITIES: No pedal edema. No calf tenderness. NEUROLOGICAL: Patient is awake, alert and oriented x3. Cranial nerves 2 through 12 are grossly intact. - Labs CBC & Chem 7: 06/18/19 07:29 06/18/19 07:29 Labs: Abnormal Lab Results - Last 24 Hours (Table) 06/18/19 06/18/19 06/19/19 Range/Units 16:57 20:03 06:47 POC Glucose (mg/dL) 166 H 339 H 158 H (75-99) mg/dL Microbiology - Last 24 Hours (Table) 06/15/19 14:00 Blood Culture - Preliminary Blood No Growth after 72 hours Assessment and Plan Plan: 1. Uncomplicated acute sigmoid diverticulitis, without any evidence of perforation, no abscess formation. Discontinue Levaquin, continue IV Flagyl, advance diet to low fiber. IV fluids transitioned to saline lock. Consult with Dr. Boyd appreciated. 2. Hypertension. Continue hydralazine 50 mg twice a day and losartan 100 mg d aily. Vasotec IV for hypertension. 3. Prior history of total abdominal hysterectomy with bilateral salpingo- oophorectomy, cholecystectomy, appendectomy, no prior evidence of bowel obstruction the past. Last colonoscopy was over 20 years ago, and was done only once in her entire lifetime. 4. CKD stage III. Baseline creatinine ranges between 1.5-1.61. 5. GI prophylaxis. Protonix IV 6. DVT prophylaxis, heparin subcu 7. Ankle and foot pain, improved with steroids. Colchicine discontinued. 8. Urinary retention requiring straight catheterization, resolved. Discharge plan: Return home on Saturday. Impression and plan of care have been directed as dictated by the signing physician. Ernestina Ramirez nurse practitioner acting as scribe for signing physician.
[2019-06-19] MEDS: MELATONIN 3 MG TABLET PO SCH (20:47)
[2019-06-19 21:26] VITALS: RESP 16
[2019-06-19] MEDS ORDERED: INSULIN ASPART (NovoLOG) 100 UNIT/ML VIAL SQ ONE (22:12)
[2019-06-20] MEDS: metroNIDAZOLE-NS PMX 500 MG in SALINE 1 100ML.BAG IVPB SCH ×3 (00:01→12:14)
[2019-06-20 07:20] LABS: HCT 32.3 % (34.0-46.0); HGB 10.2 gm/dL (11.4-16.0); MCH 30.5 pg (25.0-35.0); MCHC 31.7 g/dL (31.0-37.0); MCV 96.2 fL (80.0-100.0); Mean Platelet Volume 8.1; Platelet Count 199 k/uL (150-450); RBC 3.36 m/uL (3.80-5.40); RDW 12.8 % (11.5-15.5); WBC 6.3 k/uL (3.8-10.6)
[2019-06-20 07:33] LABS: Calcium 8.2 mg/dL (8.4-10.2); Potassium 3.7 mmol/L (3.5-5.1)
[2019-06-20] MEDS: LOSARTAN 50 MG TAB PO SCH (08:30)
[2019-06-20] MEDS: PANTOPRAZOLE 40 MG TABLET PO SCH (08:30)
[2019-06-20] MEDS: hydrALAZINE HCL 50 MG TAB PO SCH (08:31)
[2019-06-20] MEDS: HEPARIN SODIUM,PORCINE 5,000 UNIT/ML 1 ML VIAL SQ SCH (08:31)
[2019-06-20] MEDS: CYANOCOBALAMIN 500 MCG TAB PO SCH (08:31)
[2019-06-20 08:53] VITALS: BP 135/74; PULSE 66; TEMP 97.8
--- NOTE | 2019-06-20 12:27 | P.DS ---
Providers Date of admission: 06/15/19 13:36 Expected date of discharge: 06/20/19 Attending physician: Liliana Carpio Consults: 06/16/19 10:51 Consult Physician Routine Consulting Provider: Dominic Boyd Consult Reason/Comments: abd pain, distention Do you want consulting provider notified?: Yes Primary care physician: Hetal Horton Hospital Course: This is an 89-year-old lady patient of Dr. Horton with past medical history of hypertension, admitted to the hospital secondary to left local left lower quadrant abdominal pain for the past 4 days prior to admission. Patient has no fever no chills, has been chronically constipated, no melena no magician, no fever no chills, occasional constipation, and was seen in the emergency room secondary to abdominal pain and was found to have acute diverticulitis. Patient's last colonoscopy was over 20 years ago, and only had one done in her entire life. Patient had history of PERRY/BSO cholecystectomy appendectomy. no new medications placed by PCP, prior to admission. Emergency room , CAT scan of the abdomen and pelvis were done for evaluation of the abdominal pain, and was found to have moderate to large hiatal hernia, incre asing in size, per distention stomach within hernia, prominence of gastric fold, nonspecific distention, moderate wall thickening proximal to mid section colon, with mild to moderate ill-defined fluid and fat stranding centered in the left anterior upper to mid pelvis. CT scan findings are consistent with acute diverticulitis without perforation. 06/16: Patient has been afebrile, blood pressure 137/77, pulse ox 95% on room air, heart rate 82. CBC within normal limits, BUN 20 creatinine 1.30, blood sugar 131. Patient is currently on IV Levaquin and IV Flagyl and IV fluids. Patient is complaining of increasing abdominal pain and nausea. She states she is not passing gas. Patient made nothing by mouth, abdominal x-ray obtained which revealed nonspecific findings. Dilaudid added for pain control and Zofran for nausea. IV fluids added and Vasotec for hypertension. Abdominal x-ray was nonspecific. Patient has subsequently been seen by Dr. boyd with recommendations to remain nothing by mouth until pain is improved and then start liquid diet. No plan for surgical intervention. Colonoscopy in 6 weeks after resolution of symptoms. 06/17: Patient has been afebrile, heart rate 97, oh pressure 121/66, pulse ox 92% on room air. Repeat lab work reveals WBC 7.7, hemoglobin 11.1, platelet count 168, BUN 19, creatinine 1.38, electrolytes within normal limits. Blood cultures no growth at 24 hours. Severe abdominal pain has subsided. She continues to have left lower quadrant tenderness. We will start clear liquid diet. Patient is complaining of bilateral foot pain but tender in ankle. Uric acid will be ordered and colchicine added at low dose. 06/18: Patient continues to be afebrile, heart rate 82, blood pressure 119/70, pulse ox 93% on room air. WBC 6.1, hemoglobin 10.8, BUN 17 and creatinine 1.12. Blood culture no growth at 48 hours. Patient required straight catheterization due to urinary retention with return of 700. Patient has been able to void on the commode chair this morning. She is complaining of weakness secondary to foot pain. She continues to have bilateral foot ankle and now knee pain as well as back pain. She states in general she just doesn't feel good. Patient will be started on IV Solu-Medrol 60 mg every 6 hours for 3 doses. Uric acid came back normal at 6.8. PT and OT will be added to evaluate for subacute rehab. Abdominal pain is impr oving. We will advance diet to full liquids. 06/19: Patient states that her foot pain is much improved. We will plan to discontinue Levaquin in case this is a culprit. She has been afebrile, heart rate 67, blood pressure 126/67, pulse ox 95% on room air. Blood sugars running between 158 and 339. Hyperglycemia secondary to steroids. Abdominal pain is resolving and diet will be advanced. She has had no nausea or vomiting. The patient has been doing well with physical therapy and plans to go home versus subacute rehab. We'll plan to monitor overnight and discharged on Saturday. 06/20: Patient has decided that she would like to go to [facility] for subacute rehab versus going home. She has had no issues overnight. Vital signs have been stable, afebrile. Patient will be discharged to [facility] once all arrangements are completed. Discharge diagnoses: 1. Uncomplicated acute sigmoid diverticulitis, without any evidence of perforation, no abscess formation. 2. Hypertension. 3. Prior history of total abdominal hysterectomy with bilateral salpingo- oophorectomy, cholecystectomy, appendectomy, no prior evidence of bowel obstruction the past. 4. CKD stage III. 5. Ankle and foot pain, improved with steroids. 6. Urinary retention requiring straight catheterization, resolved. Discharge plan: [facility] under the care of Dr. Horton Impression and plan of care have been directed as dictated by the signing physician. Ernestina Ramirez nurse practitioner acting as scribe for signing physician. Patient Condition at Discharge: Good Plan - Discharge Summary Discharge Rx Participant: No New Discharge Prescriptions: New Melatonin 6 mg PO HS tablet Continue Losartan Potassium [Cozaar] 100 mg PO DAILY Aspirin 81 mg PO BID Magnesium Oxide [Mag-Ox] 250 mg PO DAILY Krill Oil 1,000 mg PO DAILY Biotin 10,000 mcg PO DAILY hydrALAZINE HCL [Apresoline] 50 mg PO BID Multivitamins, Thera [Multivitamin (formulary)] 1 tab PO DAILY Cyanocobalamin (Vitamin B-12) [Vitamin B-12] 2,500 mcg PO DAILY Cholecalciferol [Vitamin D3 (25 Mcg = 1000 Iu)] 1,000 unit PO DAILY Potassium 99 mg PO DAILY Calcium Carbonate [Calcium] 600 mg PO HS metroNIDAZOLE [Flagyl] 500 mg PO TID #15 tab Discontinued Ciprofloxacin HCl [Cipro] 500 mg PO DAILY Discharge Medication List Aspirin 81 mg PO BID 10/23/13 [History] Losartan Potassium [Cozaar] 100 mg PO DAILY 10/23/13 [History] Biotin 10,000 mcg PO DAILY 09/24/17 [History] Cholecalciferol [Vitamin D3 (25 Mcg = 1000 Iu)] 1,000 unit PO DAILY 09/24/17 [History] Cyanocobalamin (Vitamin B-12) [Vitamin B-12] 2,500 mcg PO DAILY 09/24/17 [History] Krill Oil 1,000 mg PO DAILY 09/24/17 [History] Magnesium Oxide [Mag-Ox] 250 mg PO DAILY 09/24/17 [History] Multivitamins, Thera [Multivitamin (formulary)] 1 tab PO DAILY 09/24/17 [History] hydrALAZINE HCL [Apresoline] 50 mg PO BID 09/24/17 [History] Potassium 99 mg PO DAILY 07/18/18 [History] Calcium Carbonate [Calcium] 600 mg PO HS 06/15/19 [History] Melatonin 6 mg PO HS tablet 06/20/19 [Rx] metroNIDAZOLE [Flagyl] 500 mg PO TID #15 tab 06/20/19 [Rx] Follow up Appointment(s)/Referral(s): Hetal Horton MD [Primary Care Provider] - 1 Week (at [facility]) Patient Instructions/Handouts: Diverticulitis (DC)
== END 2019-06-20 13:53 | DRG 392 ==
LOC: EC 10:32 → 6NMEDSUR 13:36
PROVIDERS: ADMIT Family Medicine; ATTEND Family Medicine
DX: K57.32 Diverticulitis of large intestine without perforation or abscess without bleeding (principal); N18.3 Chronic kidney disease, stage 3 (moderate); I12.9 Hypertensive chronic kidney disease with stage 1 through stage 4 chronic kidney disease, or unspecified chronic kidney disease; I25.10 Atherosclerotic heart disease of native coronary artery without angina pectoris; N28.9 Disorder of kidney and ureter, unspecified; K44.9 Diaphragmatic hernia without obstruction or gangrene; R33.9 Retention of urine, unspecified; R73.9 Hyperglycemia, unspecified; T38.0X5A Adverse effect of glucocorticoids and synthetic analogues, initial encounter; M79.671 Pain in right foot; M79.672 Pain in left foot; M54.9 Dorsalgia, unspecified; M25.579 Pain in unspecified ankle and joints of unspecified foot; K21.9 Gastro-esophageal reflux disease without esophagitis; M19.90 Unspecified osteoarthritis, unspecified site; Z79.82 Long term (current) use of aspirin; Z79.899 Other long term (current) drug therapy; Z86.19 Personal history of other infectious and parasitic diseases; Z90.710 Acquired absence of both cervix and uterus; Z90.49 Acquired absence of other specified parts of digestive tract; Z96.653 Presence of artificial knee joint, bilateral; Z86.010 Personal history of colon polyps; Z87.81 Personal history of (healed) traumatic fracture; Z98.890 Other specified postprocedural states; Z98.891 History of uterine scar from previous surgery; Z98.42 Cataract extraction status, left eye; Z98.41 Cataract extraction status, right eye; Z96.1 Presence of intraocular lens; Z88.5 Allergy status to narcotic agent; Z88.0 Allergy status to penicillin; Z88.2 Allergy status to sulfonamides; Z80.49 Family history of malignant neoplasm of other genital organs
CPT/HCPCS: 36415; 74019; 74176; 80048; 80053; 81001; 82150; 83605; 83690; 84550; 85025; 85027; 85610; 87040; 93005; 96365; 99285

== ENCOUNTER → 2019-08-06 | Outpatient (CLI) | payer MEDICARE, BC ==
--- NOTE | 2019-08-06 09:32 | XR ---
EXAMINATION TYPE: XR chest 2V DATE OF EXAM: 08/06/2019 COMPARISON: 06/29/2013 HISTORY: 89 year-old female elevated d-dimer, tachycardia TECHNIQUE: Frontal and lateral views FINDINGS: Heart upper limits of normal in size. Aorta within normal limits. Mild diffuse interstitial prominenc e is a right appearance. ACDF hardware. Rounded density in the retrocardiac region. No consolidation or pleural effusion. IMPRESSION: 1. Rounded retrocardiac density suggests a moderate-sized hernia. 2. Otherwise, chronic changes without acute process seen.
--- NOTE | 2019-08-06 10:04 | NM ---
EXAMINATION TYPE: NM pul vent and perfuse DATE OF EXAM: 08/06/2019 COMPARISON: Radiograph same day HISTORY: 89-year-old female elevated d-dimer, shortness of breath TECHNIQUE: Utilizing inhalation of 35.5 mCi Tc 99m DTPA aerosol and intravenous injection of 5 mCi o f Tc 99m MAA, ventilation and perfusion images are acquired post injection in multiple projections. FINDINGS: Normal radiotracer distribution is noted in the lungs. There is no evidence of mismatched defects. IMPRESSION: Very low probability for pulmonary embolus.
== END | disposition home or self-care (01) ==
LOC: RADNMMAIN 07:59
PROVIDERS: ATTEND Internal Medicine
DX: I60.7 Nontraumatic subarachnoid hemorrhage from unspecified intracranial artery (principal); I51.89 Other ill-defined heart diseases
CPT/HCPCS: 71046; 78582; A9540; A9567

== ENCOUNTER → 2019-08-07 | Outpatient (CLI) | payer MEDICARE, BC ==
--- NOTE | 2019-08-07 14:15 | US ---
EXAMINATION TYPE: US venous doppler duplex LE DATE OF EXAM: 08/07/2019 2:01 PM COMPARISON: NONE CLINICAL HISTORY: R22.42, R22.41 Localized swelling, mass and lump,. Elevated D dimer, bilateral feet and ankle swelling. SIDE PERFORMED: Bilateral TECHNIQUE: The lower extremity deep venous system is examined utilizing real time linear array sonog akosua with graded compression, doppler sonography and color-flow sonography. VESSELS IMAGED: External Iliac Vein (EIV) Common Femoral Vein Deep Femoral Vein Greater Saphenous Vein * Femoral Vein Popliteal Vein Small Saphenous Vein * Proximal Calf Veins (* superficial vessels) Grayscale, color doppler, spectral doppler imaging performed of the deep veins of the lower extremiti es. There is normal flow, compressibility, vascular waveforms. Right Leg: Negative for DVT Left Leg: Negative for DVT IMPRESSION: No sonographic evidence of deep venous thrombosis within either the visualized bilateral lower extremities.
--- NOTE | 2019-08-08 07:44 | ECHOF ---
Referral Reason:I34.0 Nonrheumatic mitral (valve) insufficiency; MEASUREMENTS -------- HEIGHT: 157.5 cm WEIGHT: 78.5 kg BP: 212/84 RVIDd: 2.9 cm (< 3.3) IVSd: 1.3 cm (0.6 - 1.1) LVIDd: 3.8 cm (3.9 - 5.3) LVPWd: 1.2 cm (0.6 - 1.1) IVSs: 1.8 cm LVIDs: 2.9 cm LVPWs: 1.7 cm LA Diam: 3.7 cm (2.7 - 3.8) LAESV Index (A-L): 32.37 ml/m Ao Diam: 2.9 cm (2.0 - 3.7) AV Cusp: 1.6 cm (1.5 - 2.6) MV EXCURSION: 15.293 mm (> 18.000) MV EF SLOPE: 33 mm/s (70 - 150) EPSS: 0.6 cm MV E Pino: 0.90 m/s MV DecT: 284 ms MV A Pino: 1.12 m/s MV E/A Ratio: 0.80 RAP: 5.00 mmHg RVSP: 30.03 mmHg TAPSE: 18.55 mm FINDINGS -------- Sinus rhythm. This was a technically good study. The left ventricular size is normal. There is mild concentric left ventricular hypertrophy. Overa ll left ventricular systolic function is normal with, an EF between 60 - 65 %. The right ventricle is normal in size. LA is midly dilated 29-33ml/m2. The right atrium is normal in size. Interatrial and interventricular septum intact. The aortic valve is trileaflet and appears structurally normal. Mild mitral regurgitation is present. Mild tricuspid regurgitation present. Right ventricular systolic pressure is normal at < 35 mmHg. The pulmonic valve was not well visualized. The aortic root size is normal. Normal inferior vena cava with normal inspiratory collapse consistent with estimated right atrial pre ssure of 5 mmHg. There is no pericardial effusion. CONCLUSIONS -------- 1. Sinus rhythm. 2. This was a technically good study. 3. The left ventricular size is normal. 4. There is mild concentric left ventricular hypertrophy. 5. Overall left ventricular systolic function is normal with, an EF between 60 - 65 %. 6. The right ventricle is normal in size. 7. LA is midly dilated 29-33ml/m2. 8. The right atrium is normal in size. 9. Interatrial and interventricular septum intact. 10. The aortic valve is trileaflet and appears structurally normal. 11. Mild mitral regurgitation is present. 12. Mild tricuspid regurgitation present. 13. Right ventricular systolic pressure is normal at < 35 mmHg. 14. The pulmonic valve was not well visualized. 15. The aortic root size is normal. 16. Normal inferior vena cava with normal inspiratory collapse consistent with estimated right atrial pressure of 5 mmHg. 17. There is no pericardial effusion. RAD TECHNOLOGIST: Geneva Serra RDCS
== END | disposition home or self-care (01) ==
LOC: RADUSWWP 13:30
PROVIDERS: ATTEND Internal Medicine
DX: I08.1 Rheumatic disorders of both mitral and tricuspid valves (principal); R60.0 Localized edema
CPT/HCPCS: 93306; 93970

== ENCOUNTER → 2019-11-17 | Outpatient (CLI) | payer MEDICARE, BC ==
--- NOTE | 2019-11-17 14:10 | XR ---
EXAMINATION TYPE: XR Hip Bilateral Complete DATE OF EXAM: 11/17/2019 COMPARISON: None HISTORY: Hip pain TECHNIQUE: Bilateral hips are examined in 2 projections each. FINDINGS: Femoral heads articulate with the acetabulum. Left hip joint spaces narrowed. Milder narrow ing of the right hip joint space is present. No acute fractures or dislocations are evident. IMPRESSION: 1. 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
== END | disposition home or self-care (01) ==
LOC: RADXRMAIN 13:48
PROVIDERS: ATTEND Internal Medicine
DX: M16.0 Bilateral primary osteoarthritis of hip (principal)
CPT/HCPCS: 73521

== ENCOUNTER → 2021-06-13 | Outpatient (CLI) | payer MEDICARE, BC ==
--- NOTE | 2021-06-23 12:09 | HM ---
HOLTER MONITOR REPORT No diary was provided. Heart rate ranged from 46 to 105 beats per minute with average heart rate of 60 beats per minute. Predominant rhythm was sinus with IVCD. There were rare isolated PACs and PVCs noted. No significant Antony arrhythmia was noted. Heart rate was less than 60 for about 53% but no diary was provided and possibly no symptoms. There were ventricular ectopic beats of less than 0.1% and there was 3-beat run of PVCs noted. There was a 3-beat run of PAT noted. Overall, no significant arrhythmia. FINAL IMPRESSION: This is a 96 hour Holter recording. No diary was provided. No significant arrhythmia noted. Predominant rhythm is sinus. Rare PACs and PVCs. Three beats of PVCs were noted in a row, which are not significant. MMODL / IJN: [id number] /
== END | disposition home or self-care (01) ==
LOC: RADECHMAIN 11:30
PROVIDERS: ATTEND Internal Medicine
DX: I49.3 Ventricular premature depolarization (principal); I49.1 Atrial premature depolarization
CPT/HCPCS: 93225; 93226; 93270

== ENCOUNTER → 2021-06-14 | Outpatient (CLI) | payer MEDICARE, BC ==
--- NOTE | 2021-08-31 14:50 | HM ---
HOLTER MONITOR REPORT No diary was provided. Heart rate ranged from 46 to 105 beats per minute with average heart rate of 60 beats per minute. Predominant rhythm was sinus with IVCD. There were rare isolated PACs and PVCs noted. Not significant Antony arrhythmia was noted. Heart rate was less than 60 for about 53% but no diary was provided and possibly no symptoms. There were ventricular ectopic beats of less than 0.1% and there was 3-beat run of PVCs noted. There was a 3-beat run of PAT noted. Overall, no significant arrhythmia. FINAL IMPRESSION: This is a 96 hour holter recording. No diary was provided. No significant arrhythmia noted. Predominant rhythm is sinus. Rare PACs and PVCs. Three beats of PVCs were noted in a row, which are not significant. MTDD
== END | disposition home or self-care (01) ==
LOC: RADECHMAIN 14:09
PROVIDERS: ATTEND Internal Medicine
DX: I49.3 Ventricular premature depolarization (principal); I49.1 Atrial premature depolarization
CPT/HCPCS: 93225; 93226

== ENCOUNTER → 2022-02-06 | Outpatient (CLI) | payer MEDICARE, BC ==
[~2022-02-06] MED LIST changes: -ALPRAZolam 0.25 MG TAB PO PRN; -ALPRAZolam 0.5 MG TAB PO PRN; -ASPIRIN 325 MG TAB PO ONE; -ASPIRIN 81 MG PO SCH; -ATORVASTATIN 80 MG TAB PO ONE; -CHOLECALCIFEROL 1,000 UNIT TAB PO SCH; -CYANOCOBALAMIN 2500 MCG PO SCH; -HEPARIN SODIUM 1,000 UN/ML (10ML VL) IV ONE; -HEPARIN SODIUM 1,000 UN/ML (10ML VL) ONE; -IOPAMIDOL-370 125ML BTL INJ ONE; -LIDOCAINE 2% INJ 20 MG/ML SQ ONE; -MIDAZOLAM 2 MG/2 ML VIAL IVP ONE; -MULTIVITAMINS, THERA 1 EACH TAB PO SCH; -NITROGLYCERIN SL TABS 0.4 MG TAB SUBLINGUAL PRN; -NON-FORMULARY DRUG (Biotin [Biotin] 10,000 MCG) PO SCH; -NON-FORMULARY DRUG (Krill Oil [Krill Oil] 500 MG) PO SCH; -NON-FORMULARY DRUG (Losartan Potassium [Cozaar] 100 MG) PO SCH; -NON-FORMULARY DRUG (Magnesium Oxide 250 MG) PO SCH; -NON-FORMULARY DRUG (Potassium [Potassium] 99 MG) PO SCH; +REGADENOSON 0.4 MG/5 ML SYRINGE IV ONE; -RX INFO: IV CONTRAST WAS GIVEN 1 EACH MISC MISCELLANE PRN; -SODIUM CHLORIDE 0.9% 1,000 ML IV SCH; -SODIUM CHLORIDE 0.9% 1,000 ML in EMPTY BAG 1 BAG IV ONE; -VERAPAMIL 2.5 MG/ML 2 ML AMP ONE; -VERAPAMIL SYRINGE (5 MG/10 ML) IVP ONE; -fentaNYL (PF) 50 MCG/ML 2 ML AMP IVP ONE; -fentaNYL (PF) 50 MCG/ML 2 ML AMP ONE; -hydrALAZINE HCL 25 MG TAB PO SCH
--- NOTE | 2022-02-06 12:27 | NM ---
EXAMINATION TYPE: NM stress lexiscan cardiolite DATE OF EXAM: 02/06/2022 COMPARISON: NONE HISTORY: Left bundle branch block TECHNIQUE: After the intravenous administration of 9.9 mCi Tc 99m Sestamibi - Cardiolite resting SPE CT images acquired 65 minutes post injection. At peak stress 24 mCi Tc 99m Sestamibi - Stress images obtained 40 minutes post injection The patient was stressed with 0.4mg Lexiscan. FINDINGS: No fixed defects are evident. Some apical thinning may be present. No reversible stress defects on Spect images May be some minimal dyskinesia of the cardiac apex. Ejection fraction is calculated to be 62 %. IMPRESSION: 1. No scintigraphic evidence for reversible ischemia. 2. Mild apical thinning may be present. Some dyskinesia cardiac apex is noted and wall motion. Ejecti on fraction is normal.
--- NOTE | 2022-02-07 09:16 | CA ---
Lexiscan Nuclear Stress Test Report Name: Ysabel Salas Exam Date: 02/06/2022 10:08 Exam Location: [place] Stress Ht (in): 61 Wt (lb): 170 BSA: 1.76 Ordering Phys: Hetal Paz MD Referring Phys: HETAL PAZ,, Technologist: Jan Ahmadi Age: 89 Gender: F : [id number] Procedure CPT: Indications: I44.7 ICD-10 Codes: Patient History: Medications: SEE LIST Meds past 24 hrs: Pretest Chest Pain: STRESS TEST Lexiscan Protocol Exercise Duration (min:sec): 02:[address] Depressions (mm): Angina Score: Tariq Score: Resting HR (bpm): 55 Peak HR (bpm): 82 Resting BP (mmHg): 180 / 70 Peak BP (mmHg): 167 / 70 MPHR: 131 Target HR: 111 % MPHR: 63 METS: 1.0 Total Dose: Peak Dose: Atropine: Double Product: 07774 BP Response: Stress Termination: PROTOCOL COMPLETE Stress Symptoms: SHORT OF BREATH Stress Summary: ECG ANALYSIS Resting ECG: Stress ECG: CONCLUSIONS Baseline EKG revealed sinus mechanism with IVCD poor R-wave progression and nonspecific ST-T changes. With Lexiscan administration not agent of 55-72 bpm and blood pressure changed from 180/70-167/70 and came back to 159/72 at completion. Patient had transient shortness of breath. By EKG criteria this is an inconclusive Lexiscan stress test with a resting EKG changes. The nuclear scan results which are more pertinent will be reported with radiologist Dr. Beena Ward MD (Electronically Signed) Final Date: 07 February 2022 09:15
--- NOTE | 2022-02-09 07:25 | US ---
EXAMINATION TYPE: US kidneys/renal and bladder DATE OF EXAM: 02/08/2022 COMPARISON: CT, US CLINICAL HISTORY: R94.4 ABN KIDNEY FUNCTION STUDIES. Abnormal results of kidney function studies. EXAM MEASUREMENTS: Right Kidney: 11.2 x 5.1 x 4.4 cm Left Kidney: 9.5 x 4.5 x 4.2 cm Right Kidney: Complex area seen upper pole: 2.6 x 2.6 x 2.5 cm. Anechoic area seen mid: 4.1 x 4.9 x 3.2 cm. Hypoechoic area seen lower: 4.8 x 4.4 x 3.2 cm. Left Kidney: Multiple hypoechoic-possibly anechoic areas seen, largest seen at mid and measures 2.8 x 2.7 x 1.9 cm. Bladder: Appears anechoic. Bilateral Jets seen: Yes IMPRESSION: 1. Complex cyst noted upper pole right kidney. CT correlation advised. 2. Additional simple appearing cyst left kidney.
== END | disposition home or self-care (01) ==
LOC: RADNMMAIN 07:37
PROVIDERS: ATTEND Internal Medicine
DX: I44.7 Left bundle-branch block, unspecified (principal); G24.9 Dystonia, unspecified; N28.1 Cyst of kidney, acquired
CPT/HCPCS: 93017; 76770; 78452; A9500; J2785

== ENCOUNTER → 2022-02-14 | Outpatient (CLI) | payer MEDICARE, BC ==
--- NOTE | 2022-02-14 12:59 | CT ---
EXAMINATION TYPE: CT abdomen wo con CT DLP: 368.90 mGycm, Automated exposure control for dose reduction was used. DATE OF EXAM: 02/14/2022 10:46 AM COMPARISON: THIS EXAM WAS READ DURING PACS DOWNTIME, NO PRIORS AVAILABLE. CLINICAL INDICATION:Female, 89 years old with history of N28.89 Other specified disorders of Kidney; Renal Mass TECHNIQUE: Axial CT of the abdomen and pelvis. Sagittal and coronal reformats were created on a [employer] workstation. Contrast used: None Oral contrast used: with Oral Contrast FINDINGS: LOWER CHEST: Mitral valve annular calcification are present. Streaky atelectasis/scarring seen in the lung bases. Heart is mildly enlarged for size. ABDOMEN LIVER: Unremarkable GALLBLADDER AND BILE DUCTS: Unremarkable. PANCREAS: Lipomatous atrophy changes of the pancreas.E SPLEEN: Unremarkable. ADRENAL GLANDS: Unremarkable. KIDNEYS AND URETERS: No evidence of hydronephrosis or renal calculus. Multiple bilateral renal cysts. Limited evaluation for enhancing mass on single contrast study. PELVIS BLADDER: Unremarkable REPRODUCTIVE: Unremarkable. ABDOMEN & PELVIS STOMACH AND BOWEL: No evidence of bowel obstruction. There is a moderate hiatal hernia present. Scatt ered clonic diverticula. PERITONEUM: No evidence of pneumoperitoneum or free fluid. VASCULATURE: Moderate atherosclerotic calcifications are present throughout the abdominal aorta and i ts branches. No evidence of aortic aneurysm. MUSCULOSKELETAL: No acute osseous abnormalities, multilevel disc degeneration changes with superior e ndplate deformity of L1. LYMPH NODES: No gross evidence for lymphadenopathy. SOFT TISSUE/ABDOMINAL WALL: Unremarkable IMPRESSION: 1. Multiple cysts are seen within the kidneys right greater than left. Contrasted evaluation is slig htly limited. Consider contrast-enhanced MRI with and without IV contrast renal mass protocol for com plete evaluation of the cyst. 2. Moderate hiatal hernia. 3. Colonic diverticulosis.
== END | disposition home or self-care (01) ==
LOC: RADCTMAIN 09:22
PROVIDERS: ATTEND Internal Medicine
DX: N28.89 Other specified disorders of kidney and ureter (principal); N28.1 Cyst of kidney, acquired; K44.9 Diaphragmatic hernia without obstruction or gangrene; K57.30 Diverticulosis of large intestine without perforation or abscess without bleeding
CPT/HCPCS: 82565; 84520; 74150; 36415; Q9967